=== PATIENT | male | born 1940 | race Caucasian/White ===

== ENCOUNTER → 2017-04-20 | Outpatient (CLI) | payer MEDICARE, OTHER ==
--- NOTE | 2017-04-20 12:27 | CT ---
EXAMINATION TYPE: CT angio neck DATE OF EXAM: 04/20/2017 HISTORY: Occlusion and stenosis of left carotid artery per order. Known peripheral vascular disease. History of carotid endarterectomy. COMPARISON: NONE CT DLP: 437 mGycm. Automated Exposure Control for Dose Reduction was Utilized. TECHNIQUE: CTA scan of the neck is performed without and with IV Contrast, patient injected with 80 ml mL of Visipaque 320, axial images are obtained, coronal and sagittal reformatted images are review ed. Three-D reconstructed images are created on an independent workstation and reviewed. FINDINGS: Carotid/Vascular Structures: There is normal three-vessel origin from aortic arch which does not show significant plaque. There is mild peripheral calcified plaque at origin of all 3 vessels. The right common carotid artery shows normal origin from the right brachiocephalic artery. There is no signific ant stenosis in visualized portion of subclavian arteries bilaterally. Right common carotid artery sh ows mild calcified plaque at its origin. Remainder shows no significant plaque or stenosis. There is no significant plaque or stenosis at right carotid bulb. There is patent right external carotid arter y without significant plaque or stenosis. There is some tortuous course to the proximal internal das tid artery with moderate calcified plaque supraclinoid segment. No significant stenosis is seen. Left common carotid artery shows mild plaque at its origin. There is no significant stenosis identifi ed. No significant plaque at left carotid bulb level is seen. There is more severe predominately mixed plaque in the proximal internal carotid artery just past car otid bulb with significant stenosis identified. Lumen is significantly narrowed but some patency is i dentified along the anterior aspect measuring roughly 1.7 mm on raw data image 115. Computer postproc essing shows is lumen diameter is narrowed to 1.3 mm and expands to 4.3 mm superior to this. Degree o f narrowing is thought 70% on computer processing. It even appears more prominent than this on review of the raw data images. Length of plaque or significant stenosis is roughly 1 to 2 cm. Remainder of left internal carotid artery shows mild calcified plaque supraclinoid segment without significant alex nosis. Left vertebral artery is dominant. Vertebral arteries are patent to basilar junction. Other: Cervical spine is straightened. There is mild multilevel spurring. IMPRESSION: There is hemodynamically significant stenosis in proximal internal carotid artery with ca lculated lumen diameter narrowing of 70% with suspected even greater than narrowing on gross visualiz ation.
== END | disposition home or self-care (01) ==
LOC: RADCTMAIN 09:52
PROVIDERS: ATTEND Surgery
DX: I65.22 Occlusion and stenosis of left carotid artery (principal)
CPT/HCPCS: 82565; 84520; 70498; 36415; Q9967

== ENCOUNTER → 2017-04-24 | Outpatient (CLI) | payer MEDICARE, OTHER ==
[2017-04-24 13:29] LABS: Basophils # (A) 0.1 k/uL (0-0.2); Basophils % (A) 1 %; Eosinophils # (A) 0.2 k/uL (0-0.7); Eosinophils % (A) 3 %; HCT 43.9 % (39.0-53.0); HGB 14.2 gm/dL (13.0-17.5); Lymphocytes # (A) 1.1 k/uL (1.0-4.8); Lymphocytes % (A) 18 %; MCH 29.2 pg (25.0-35.0); MCHC 32.3 g/dL (31.0-37.0); MCV 90.3 fL (80.0-100.0); Mean Platelet Volume 7.2; Monocytes # (A) 0.4 k/uL (0-1.0); Monocytes % (A) 7 %; Neutrophils # (A) 4.3 k/uL (1.3-7.7); Neutrophils % (A) 70 %; Platelet Count 203 k/uL (150-450); RBC 4.87 m/uL (4.30-5.90); RDW 13.8 % (11.5-15.5); WBC 6.1 k/uL (3.8-10.6)
[2017-04-24 13:34] LABS: Potassium 4.9 mmol/L (3.5-5.1)
[2017-04-24 13:39] LABS: INR 1.3 (<1.2); Partial Thromboplastin Time 30.4 sec (22.0-30.0)
[2017-04-24 13:42] LABS: Appearance,Urine Clear (Clear); Bilirubin,Urine Negative (Negative); Blood,Urine Negative (Negative); Color,Urine Light Yellow; Glucose,Urine (UA) 4+ (Negative); Ketones,Urine Negative (Negative); Leukocyte Esterase,Urine Negative (Negative); PH, Urine 5.5 (5.0-8.0); Protein,Urine Negative (Negative); Specific Gravity,Urine 1.007 (1.001-1.035); Urobilinogen,Urine <2.0 mg/dL (<2.0)
== END | disposition home or self-care (01) ==
LOC: LABPAT 12:37
PROVIDERS: ATTEND Surgery
DX: Z01.812 Encounter for preprocedural laboratory examination (principal); I65.22 Occlusion and stenosis of left carotid artery; Z51.81 Encounter for therapeutic drug level monitoring; Z79.01 Long term (current) use of anticoagulants
CPT/HCPCS: 36415; 80051; 81003; 82565; 84520; 85025; 85610; 85730

== ENCOUNTER 2017-05-01 05:37 | Inpatient (IN) | payer MEDICARE, OTHER ==
[2017-04-26 10:34] VITALS: BMI 36.1
[~2017-05-01 05:37] MED LIST: DEXAMETHASONE SOD PHOSPHATE 10 MG/ML 1 ML VIAL IV ONE; LACTATED RINGERS 1,000 ML IV SCH; MIDAZOLAM 2 MG/2 ML VIAL IV PRN; MORPHINE SULFATE 4 MG/ML SYRINGE IV PRN; NITROGLYCERIN-D5W PMX 50 MG in DEXTROSE/WATER 1 250ML.BAG IV SCH; ONDANSETRON 4 MG/2 ML VIAL IVP ONE; PHENYLEPHRINE 40 MG in SODIUM CHLORIDE 0.9% 250 ML IV SCH; SCOPOLAMINE 1.5MG/72HR PATCH TRANSDERM ONE; ceFAZolin IN SWFI 2 GM/20 ML SYRINGE IVP ONE
[2017-05-01] MEDS ORDERED: DEXTROSE 50%-WATER 50 ML SYRINGE IVP ONE ×2 (06:53→07:25)
[2017-05-01] MEDS ORDERED: LIDOCAINE 1% 20 ML VIAL (10MG/ML) FOR IV START INTRADERMA ONE (07:00)
[2017-05-01 07:03] LABS: Glucose,Whole Blood 62 mg/dL (75-99)
[2017-05-01] MEDS ORDERED: PROPOFOL 10 MG/ML 20 ML VIAL IV ONE (07:34)
[2017-05-01] MEDS ORDERED: MIDAZOLAM 2 MG/2 ML VIAL ONE (07:34)
[2017-05-01] MEDS ORDERED: SUCCINYLCHOLINE CHLORIDE VIAL 200 MG/10 ML VIAL IV ONE (07:34)
[2017-05-01] MEDS ORDERED: HEPARIN SODIUM,PORCINE 5,000 UNIT/ML 1 ML VIAL ONE (07:34)
[2017-05-01] MEDS ORDERED: fentaNYL (PF) 50 MCG/ML 2 ML AMP ONE (07:34)
[2017-05-01] MEDS ORDERED: NITROGLYCERIN-D5W PMX 50 MG in DEXTROSE/WATER 1 250ML.BAG IV SCH (07:45)
[2017-05-01] MEDS ORDERED: GELATIN SPONGE,ABSORB (LARGE) 1 EACH SPONGE TOPICAL ONE (08:14)
[2017-05-01] MEDS ORDERED: THROMBIN (BOVINE) 5,000 UNIT VIAL TOPICAL ONE (08:15)
[2017-05-01] MEDS ORDERED: ACETAMINOPHEN TAB 325 MG TAB PO PRN (10:10)
[2017-05-01] MEDS ORDERED: MAG HYDROX/AL HYDROX/SIMETH 30 ML CUP PO PRN (10:10)
[2017-05-01] MEDS ORDERED: BENZOCAINE/MENTHOL LOZENG 1 EACH LOZENGE MUCOUS MEM PRN (10:10)
[2017-05-01] MEDS ORDERED: TRIMETHOBENZAMIDE 100 MG/ML 2 ML VIAL IM PRN (10:10)
[2017-05-01] MEDS ORDERED: HYDROcodone/APAP 5-325MG 1 EACH TAB PO PRN (10:10)
[2017-05-01 10:38] LABS: Glucose,Whole Blood 87 mg/dL (75-99)
[2017-05-01] MEDS: LACTATED RINGERS 1,000 ML IV SCH (11:15)
[2017-05-01 11:19] LABS: Glucose,Whole Blood 85 mg/dL (75-99)
--- NOTE | 2017-05-01 11:44 | P.OP ---
Date of Procedure: 05/01/17 Preoperative Diagnosis: Left internal carotid artery stenosis greater than 80% Postoperative Diagnosis: Left internal carotid artery stenosis with dense calcified plaque. Procedure(s) Performed: Left carotid endarterectomy with patch angioplasty Implants: Bovine pericardial patch Anesthesia: SILVIA Surgeon: Darien Samuel Estimated Blood Loss (ml): 15 IV fluids (ml): 500 Urine output (ml): 300 Pathology: other (Carotid plaque) Condition: stable Disposition: ICU Indications for Procedure: Is a 76-year-old gentleman who presented to my office as a referral from Dr. Joseph for carotid disease. She underwent an ultrasound that demonstrated a 80- 99% stenosis of the left internal carotid artery. He is asymptomatic without any complaints of lateralizing symptoms such as weakness, vision changes or speech issues. He did undergo a CT angiogram of his neck which demonstrated dense plaque just distal to the bifurcation consistent with greater than 70% stenosis. He presents to the hospital today for carotid endarterectomy. Operative Findings: Dense calcified plaque just distal to the bifurcation. Description of Procedure: After written informed consent was obtained the patient all risks benefits, patient prescribed patient is brought to the operative suite and laid in a supine position. The area of the neck and chest were prepped and draped in usual sterile fashion after appropriate anesthetic was performed per the anesthesiologist. A timeout was performed in normal fashion antibiotics were administered prior to incision. An oblique incision was then created just anterior to the sternocleidomastoid muscle and dissection was carried down through the platysma musculature to the carotid sheath. The carotid sheath was incised and dissection to the carotid artery was performed. Of note the carotid artery was deep and posterior. Further dissection was then carried around the common carotid artery and controlled with a vessel loop. The internal and external carotid arteries were then dissected free in a circumferential manner and controlled with vessel loops. Air was dense calcified plaque noted just distal to the carotid bulb and bifurcation. Once control was obtained patient was administered 5000 units of heparin and followed with serial ACTs. Once heparin was allowed to circulate for approximately 3 minutes the common carotid, internal and external carotid arteries were clamped. An arteriotomy was then created with a 15 blade scalpel and extended with Lorenzo scissors to the internal carotid artery. Backbleeding was allowed to be visualized from the internal carotid artery which was brisk. Stump pressures were obtained demonstrating pressures of around 70 mmHg and therefore a shunt was not utilized. Endarterectomy was then performed with a [place] device both proximally and distally the carotid vessel to a good end points at the distal internal carotid artery. Plaque was then passed off for pathology. The area was then copiously irrigated all free debris was removed. Utilizing a 7-0 Prolene suture the endpoint was sutured and tacked down. A 6 x 1 cm bovine pericardial patch was then utilized for patch angioplasty. Patch angioplasty was then performed and all fashion with 6- 0 Prolene suture in a running fashion. Prior to last sutures being placed the common carotid artery was released to allow for a good flush. It was then reclamped. The internal carotid artery was then released revealing good backbleeding. Final sutures were then placed in angioplasty was concluded. The internal carotid artery was then reclamped with a DeBakey and the proximal control was released as well as the external carotid artery to allow for any debris to be flushed into the external system. All control was then released demonstrating good pulsatile blood flow throughout the patch and in the internal carotid artery. Utilizing Doppler good flow was heard in the internal carotid artery. The area was then copiously irrigated with antibiotic solution. Hemostasis was assured with Gelfoam and thrombin. Once hemostasis was assured a 10 SULEMA drain was placed in normal fashion. It was then sutured with nylon suture. The incision was then closed in a multilayer fashion with 3- 0 Vicryl for the platysma and 4-0 Vicryl for the skin. The skin was then cleansed and dressings were placed and patient tolerated procedure well. He was awoken in the operating room moving all extremities following commands and then was taken to the ICU for recovery.
--- NOTE | 2017-05-01 15:14 | P.CONS ---
History of Present Illness - Reason for Consult Consult date: 05/01/17 medical management - Chief Complaint post left carotid endarterectomy - History of Present Illness 76-year-old male with past medical history of hypertension and diabetes mellitus. Patient does not provide a thorough history and seems to be in the mindset that he is healthy overall. Patient reports that this is an elective procedure he is not sure at which point the doctors discovered that he has internal carotid stenosis by his doctors were surveilling that and he mentioned that at one day his doctor just told him that F[place] point where need surgery. Patient denies any associated symptoms. Currently he is postoperative day #0 tolerated procedure well denies any chest pain or trouble breathing denies any dizziness or lightheadedness he claims to feel great. Tolerated by mouth intake just some light liquids, has a Diaz catheter for urination and he mentioned that he has passed a bowel movement this morning. He denies any fevers or chills denies any leg pain. Upon further questioning of his past medical history he did mention that he has hypertension diabetes mellitus and chronic kidney disease and psoriasis. He is not aware of any history of atrial fibrillation. Review of Systems Constitutional: Patient denies fever, denies chills, denies night sweating, denies significant weight changes Eyes: Patient denies visual changes, denies eye pain ENT: Patient denies ear pain, denies rhinorrhea, denies sore throat Cardiovascular: Patient denies chest pain, denies exertional dyspnea, denies peripheral leg edema, denies orthopnea, denies paroxysmal nocturnal dyspnea Respiratory:Patient denies cough, denies wheezing, denies shortness of breath Gastrointestinal: Patient denies diarrhea, denies constipation, denies nausea , denies vomiting, denies abdominal pain Genitourinary: Patient denies dysuria, denies hematuria, denies changes in urinary habits, denies genital lesions Musculoskeletal: Patient denies muscle pain, denies joint pain Psychiatric: Patient denies changes in mood or memory, denies suicidal ideation, denies anxiety Endocrine: Patient denies heat intolerance, denies cold intolerance, denies excessive thirst, denies polyuria Neurological: Patient denies focal neurologic deficits, denies weakness, denies numbness, denies tingling Hem/Lymphatic: Patient denies bleeding tendency, denies bruising, denies swollen lymph glands Allergic/Immun: Patient denies recent allergic reactions Skin: Patient denies rashes, denies pruritis, denies ulcers Past Medical History Past Medical History: Diabetes Mellitus, Hypertension, Skin Disorder Additional Past Medical History / Comment(s): blockage left carotid artery, gout , psoriasis, CKD History of Any Multi-Drug Resistant Organisms: None Reported Additional Past Surgical History / Comment(s): rt carotid endarterectomy, philip cataracts, Past Anesthesia/Blood Transfusion Reactions: No Reported Reaction Past Psychological History: No Psychological Hx Reported Smoking Status: Never smoker Past Alcohol Use History: None Reported Past Drug Use History: None Reported - Past Family History Mother Family Medical History: No Reported History family Additional Family Medical History / Comment(s): denies any family history of heart disease, stroke, or cancer Medications and Allergies Home Medications Medication Instructions Recorded Confirmed Type Atorvastatin [Lipitor] 20 mg PO HS 04/26/17 05/01/17 History Bisoprolol Fumarate [Zebeta] 10 mg PO HS 04/26/17 05/01/17 History Furosemide [Lasix] 60 mg PO DAILY 04/26/17 05/01/17 History Gabapentin 600 mg PO BID 04/26/17 05/01/17 History Insuln Asp Prt/Insulin Aspart 35 unit SQ QAM 04/26/17 05/01/17 History [NovoLOG MIX 70-30 VIAL] Insuln Asp Prt/Insulin Aspart 45 unit SQ DAILY@1800 04/26/17 05/01/17 History [NovoLOG MIX 70-30 VIAL] Rivaroxaban [Xarelto] 20 mg PO DAILY 04/26/17 05/01/17 History Allergies Allergy/AdvReac Type Severity Reaction Status Date / Time No Known Allergies Allergy Verified 05/01/17 10:57 Physical Exam Vitals: Vital Signs Temp Pulse Pulse Pulse Resp BP BP 05/01/17 14:00 82 16 05/01/17 13:00 76 24 133/76 05/01/17 12:00 98.8 F 77 22 126/80 05/01/17 11:30 84 25 H 119/82 05/01/17 11:20 77 19 05/01/17 11:10 98.8 F 18 05/01/17 11:06 98.8 F 79 18 120/78 05/01/17 10:53 80 16 146/77 05/01/17 10:38 81 16 136/65 05/01/17 10:23 76 16 145/65 05/01/17 10:08 97.1 F L 92 16 122/52 05/01/17 07:10 97.9 F 78 18 176/77 BP Pulse Ox 05/01/17 14:00 94 L 05/01/17 13:00 95 05/01/17 12:00 94 L 05/01/17 11:30 94 L 05/01/17 11:20 94 L 05/01/17 11:10 120/78 98 05/01/17 11:06 95 05/01/17 10:53 140/70 05/01/17 10:38 144/75 97 05/01/17 10:23 146/82 96 05/01/17 10:08 120/50 91 L 05/01/17 07:10 157/80 99 Intake and Output 04/30/17 05/01/17 05/01/17 22:59 06:59 14:59 Intake Total 1010 Output Total 580 Balance 430 Intake: IV 1010 Lactated Ringers 1,000 ml 160 @ 80 mls/hr IV .[id number] [facility] Rx#:[id number] Output: Urine 530 Estimated Blood Loss 50 ABP, PAP, CO, CI - Last 8 Hours Arterial Blood Pressure 146/62 Arterial Blood Pressure 157/73 Constitutional: No acute distress, conversant, pleasant Eyes: Anicteric sclerae, moist conjunctiva, no lid-lag Pupils equal round reactive to light ENMT: NC/AT Oropharynx clear, no erythema, exudates Neck: Supple, FROM, no masses, or JVD No carotid bruits on the right side, left carotid arteries covered with surgical dressing. No thyromegaly SULEMA drain in place status post surgery Lungs: Clear to auscultation Clear to percussion Normal respiratory effort, no accessory muscle use Cardiovascular: Heart irregular in rate and rhythm, No murmurs, gallops, or rubs No peripheral edema Abdominal: Soft Nontender, no guarding, rebound or rigidity Abdomen moving with respiration Normoactive bowel sounds No hepatomegaly, No splenomegaly No palpable mass No abdominal wall hernia noted Diaz catheter in place yellow urine Skin: Normal temperature, tone, texture, turgor No induration No subcutaneous nodules Patient has scattered rashes and lesions over and around his umbilicus , right elbow, left knee from known psoriasis erythematous patches. No ulcers Extremities: No digital cyanosis No clubbing Pedal pulses intact and symmetrical Radial pulses intact and symmetrical No calf tenderness Psychiatric: Alert and oriented to person, place and time Appropriate affect fair judgment Neuro Muscles Strength 5/5 in all 4 extremities Sensation to light touch grossly present throughout Cranial nerves II-XII grossly intact No focal sensory deficits Lymphatics: no palpable cervical or supraclavicular , or inguinal lymph nodes Results Labs: Abnormal Lab Results - Last 24 Hours (Table) 05/01/17 Range/Units 06:38 POC Glucose (mg/dL) 62 L (75-99) mg/dL Assessment and Plan Assessment: 76-year-old male with history of diabetes mellitus, hypertension, CK D. Presented electively for left carotid endarterectomy, currently postoperative day 0 tolerated procedure well. Medicine was consulted for medical management. Patient is unable to provide a very thorough history he seems to have poor insight about the scope of's medical problems. Plan: #Left carotid stenosis status post left carotid endarterectomy postoperative day 0 Patient tolerated procedure well Management per primary surgical team Continue aspirin, statin #Diabetes mellitus Continue with home insulin dosing Add insulin sliding scale Check A1c #Hypertension Currently controlled bisoprolol #Atrial fibrillation chronic on anticoagulation, currently rate controlled Continue with xarelto #Chronic kidney disease It's unclear what says baseline creatinine is however his current creatinine is the lowest he ever had by reviewing his chart Avoid nephrotoxic medications Continue to monitor urine output and renal function #DVT prophylaxis patient on Heparin sc #Diet, diabetic as tolerated #Psoriasis Currently stable Discontinue heparin subcu in the morning when patient starts Xarelto Check morning labs Continue supportive care Close monitoring of blood sugars Surrogate decision-maker: Patient's Marlen CODE STATUS: Full code Discussed with: Patient, RN Thank you for allowing us to participate in the care of this patient. Do not hesitate to contact us with questions. Someone can be reached from the [facility] hospitalist group at all hours of the day at [phone].
[2017-05-01 17:15] LABS: Glucose,Whole Blood 115 mg/dL (75-99)
[2017-05-01] MEDS: INSULIN ASPART 100 UNIT/ML 1 ML 10 ML VIAL SQ SCH ×2 (17:24→20:48)
[2017-05-01] MEDS ORDERED: INSULN ASP PRT/INSULIN ASPART 100 UNIT/ML 10 ML VIAL SQ SCH (18:00)
[2017-05-01] MEDS: GABAPENTIN 300 MG CAP PO SCH (20:38)
[2017-05-01 20:44] LABS: Glucose,Whole Blood 216 mg/dL (75-99)
[2017-05-01] MEDS ORDERED: HEPARIN SODIUM,PORCINE 5,000 UNIT/ML 1 ML VIAL SQ SCH (21:00)
[2017-05-01] MEDS ORDERED: ATORVASTATIN 20 MG TAB PO SCH (21:00)
[2017-05-01] MEDS ORDERED: BISOPROLOL 5 MG TAB PO SCH (21:00)
[2017-05-02] MEDS: LACTATED RINGERS 1,000 ML IV SCH (03:02)
[2017-05-02 05:32] LABS: Basophils # (A) 0.1 k/uL (0-0.2); Basophils % (A) 1 %; Eosinophils # (A) 0.1 k/uL (0-0.7); Eosinophils % (A) 1 %; HCT 42.6 % (39.0-53.0); HGB 13.8 gm/dL (13.0-17.5); Lymphocytes # (A) 1.3 k/uL (1.0-4.8); Lymphocytes % (A) 13 %; MCH 28.6 pg (25.0-35.0); MCHC 32.4 g/dL (31.0-37.0); MCV 88.3 fL (80.0-100.0); Mean Platelet Volume 7.1; Monocytes # (A) 0.8 k/uL (0-1.0); Monocytes % (A) 8 %; Neutrophils # (A) 7.3 k/uL (1.3-7.7); Neutrophils % (A) 76 %; Platelet Count 219 k/uL (150-450); RBC 4.82 m/uL (4.30-5.90); WBC 9.7 k/uL (3.8-10.6)
[2017-05-02 05:51] LABS: Albumin 3.3 g/dL (3.5-5.0); Calcium 8.8 mg/dL (8.4-10.2); Potassium 4.8 mmol/L (3.5-5.1); Total Bilirubin 0.7 mg/dL (0.2-1.3); Total Protein 6.3 g/dL (6.3-8.2)
[2017-05-02] MEDS ORDERED: RIVAROXABAN 20 MG TAB PO SCH (07:30)
[2017-05-02 07:47] LABS: Glucose,Whole Blood 166 mg/dL (75-99)
[2017-05-02] MEDS: INSULIN ASPART 100 UNIT/ML 1 ML 10 ML VIAL SQ SCH ×2 (07:49→12:39)
[2017-05-02] MEDS: INSULN ASP PRT/INSULIN ASPART 100 UNIT/ML 10 ML VIAL SQ SCH ×2 (08:01→08:07)
[2017-05-02] MEDS: GABAPENTIN 300 MG CAP PO SCH (08:02)
[2017-05-02] MEDS ORDERED: ASPIRIN 81 MG PO SCH (09:00)
[2017-05-02] MEDS ORDERED: FUROSEMIDE 20 MG TAB PO SCH (09:00)
[2017-05-02 09:10] VITALS: TEMP 97.8
--- NOTE | 2017-05-02 10:13 | P.PN ---
Subjective Progress Note Date: 05/02/17 Principal diagnosis: Patient seen and examined in follow-up for diabetes mellitus, CK D, and medical management postoperatively Patient was seen and examined, sitting in chair very comfortable denies any pain , denies any chest pain or trouble breathing, doing well postoperatively, reported that he urinated and passed a bowel movement with no problems. Tolerating diet denies any nausea vomiting fevers or chills. He anticipates to go home today. Objective - Vital Signs Vital signs: Vital Signs Temp 97.8 F 05/02/17 08:00 Pulse 75 05/02/17 09:00 Resp 21 05/02/17 09:00 BP 151/62 05/02/17 09:00 Pulse Ox 93 L 05/02/17 09:00 Intake & Output 05/01/17 05/02/17 05/02/17 18:59 06:59 18:59 Intake Total 1650 1560 480 Output Total 1010 857 106 Balance 640 703 374 Weight 116 kg Intake: IV 1410 960 240 Lactated Ringers 1,000 ml 560 960 240 @ 80 mls/hr IV .[id number] [facility] Rx#:[id number] Oral 240 600 240 Output: Drainage 22 6 Left Neck 22 6 Urine 960 835 100 Estimated Blood Loss 50 Other: Voiding Method Indwelling Catheter Indwelling Catheter Indwelling Catheter # Bowel Movements 1 ABP, PAP, CO, CI - Last Documented Arterial Blood Pressure 123/73 - Exam Constitutional: vital signs stable, Not in acute distress, pleasant, conversant, dressing over the left side of the neck dry clean and intact, SULEMA drain in place minimal drainage Lungs: Clear to auscultation bilaterally, clear to percussion, normal respiratory effort no use of accessory muscles Cardiovascular: Regular rate and rhythm, no murmurs, no gallops, no rubs, no peripheral edema Gastrointestinal: Soft, no tenderness to palpation, bowel sounds positive Skin: Scattered patches of macular rash with scaling due to his history of psoriasis mainly over his left atkinson, left elbow. Extremities: No digital cyanosis or clubbing, peripheral pulses palpable and equal over bilateral radial arteries and dorsalis pedis artery, no calf muscle tenderness Psych: Alert, oriented to place, person and time, appropriate affect, intact judgment - Labs CBC & Chem 7: 05/02/17 05:20 05/02/17 05:20 Labs: Abnormal Lab Results - Last 24 Hours (Table) 05/01/17 05/01/17 05/02/17 Range/Units 17:13 20:40 05:20 BUN 29 H (9-20) mg/dL Creatinine 1.40 H (0.66-1.25) mg/dL Glucose 185 H (74-99) mg/dL POC Glucose (mg/dL) 115 H 216 H (75-99) mg/dL AST 15 L (17-59) U/L ALT 18 L (21-72) U/L Albumin 3.3 L (3.5-5.0) g/dL 05/02/17 Range/Units 07:45 BUN (9-20) mg/dL Creatinine (0.66-1.25) mg/dL Glucose (74-99) mg/dL POC Glucose (mg/dL) 166 H (75-99) mg/dL AST (17-59) U/L ALT (21-72) U/L Albumin (3.5-5.0) g/dL Assessment and Plan Assessment: 76-year-old male with history of diabetes mellitus, hypertension, CKD. Presented electively for left carotid endarterectomy, currently postoperative day 1 tolerated procedure well. Medicine was consulted for medical management. Patient is unable to provide a very thorough history he seems to have poor insight about the scope of his medical problems. Today he continues to be stable , administrative aide showing sinus rhythm. Possible discharge home today per primary surgical team Plan: #Left carotid stenosis status post left carotid endarterectomy postoperative day #1 Patient tolerated procedure well Management per primary surgical team Continue aspirin, statin #Diabetes mellitus Continue with home insulin dosing insulin sliding scale Check A1c overall blood sugar is well controlled #Hypertension Currently controlled bisoprolol #Paroxysmal Atrial fibrillation on anticoagulation Continue with xarelto currently in sinus rhythm #Chronic kidney disease It's unclear whathis baseline creatinine is however his current creatinine is the lowest he ever had by reviewing his chart, and continues to improve and trend down Avoid nephrotoxic medications Continue to monitor urine output and renal function #DVT prophylaxis, discontinue heparin sc, patient restarted his Xarelto #Diet, diabetic as tolerated #Psoriasis Currently stable continue to apply Eucerine patient does not recall the name of his regular creams # code status , full code Labs reviewed, Hgb stable post op, renal function improving (patient with CKD), very mild (not clinically significant at this point ) increase in transaminases patient stable from internal medicine stand point for discharge. Thank you for allowing us to participate in the care of this patient.
[2017-05-02 11:56] LABS: Glucose,Whole Blood 343 mg/dL (75-99)
[2017-05-02 14:01] VITALS: BP 150/65; PULSE 74; RESP 22
[2017-05-02 14:27] LABS: Hemoglobin A1C 10.9 % (4.0-6.0)
== END 2017-05-02 14:51 | disposition home or self-care (01) | DRG 39 ==
LOC: 2ORMAIN 05:37 → 6ICU 10:48
PROVIDERS: ADMIT Surgery; ATTEND Surgery
PROC: 03CL0ZZ Extirpation of Matter from Left Internal Carotid Artery, Open Approach (ICD-10-PCS; principal; 2017-05-01 07:30)
PROC: 03UL0JZ Supplement Left Internal Carotid Artery with Synthetic Substitute, Open Approach (ICD-10-PCS; principal; 2017-05-01 07:30)
DX: I65.22 Occlusion and stenosis of left carotid artery (principal); E11.22 Type 2 diabetes mellitus with diabetic chronic kidney disease; I48.0 Paroxysmal atrial fibrillation; I12.9 Hypertensive chronic kidney disease with stage 1 through stage 4 chronic kidney disease, or unspecified chronic kidney disease; N18.9 Chronic kidney disease, unspecified; I25.10 Atherosclerotic heart disease of native coronary artery without angina pectoris; E78.5 Hyperlipidemia, unspecified; I73.9 Peripheral vascular disease, unspecified; F17.200 Nicotine dependence, unspecified, uncomplicated; L40.9 Psoriasis, unspecified; Z79.899 Other long term (current) drug therapy; Z79.01 Long term (current) use of anticoagulants; Z82.49 Family history of ischemic heart disease and other diseases of the circulatory system; Z79.4 Long term (current) use of insulin; Z79.82 Long term (current) use of aspirin
CPT/HCPCS: 80053; 83036; 85025; 86850; 86900; 86901; 88304; 88305; 88311

== ENCOUNTER 2018-04-08 11:37 | Inpatient (IN) | payer MEDICARE, OTHER ==
[2018-04-08] MEDS ORDERED: IPRATROPIUM-ALBUTEROL 3 ML NEB INHALATION STA (11:45)
--- NOTE | 2018-04-08 11:49 | ED ---
General Adult HPI - General Stated complaint: DESTINEE Time Seen by Provider: 04/08/18 11:47 Source: RN notes reviewed - History of Present Illness Initial comments: This a 77-year-old male who presents emergency department from another hospital for difficulty breathing. Patient states she's been having difficulty breathing for a few weeks but over the last 3 days gotten significantly worse. Patient states she has history of diabetes nature fibrillation. Patient's d- dimer was elevated as was BNP. The Hospital transfer the patient because they don't have a thick capability of doing a VQ scan at their facility. Patient continues to be short of breath and he does have a temperature of 100.0 here. Patient states he has been coughing quite a bit as well. She denies any chest pain. Patient denies palpitations. Patient denies any swelling to the legs. Patient denies any calf tenderness. Patient denies abdominal pain patient denies nausea vomiting diarrhea. Patient denies headache patient denies numbness weakness. - Related Data Home Medications Medication Instructions Recorded Confirmed Atorvastatin [Lipitor] 20 mg PO HS 04/26/17 04/08/18 Furosemide [Lasix] 60 mg PO DAILY 04/26/17 04/08/18 Insuln Asp Prt/Insulin Aspart 35 unit SQ QAM 04/26/17 04/08/18 [NovoLOG MIX 70-30 VIAL] Insuln Asp Prt/Insulin Aspart 45 unit SQ DAILY@1800 04/26/17 04/08/18 [NovoLOG MIX 70-30 VIAL] Aspirin 81 mg PO DAILY 04/08/18 04/08/18 Gabapentin [Neurontin] 100 mg PO TID 04/08/18 04/08/18 Isosorbide Mononitrate ER [Imdur] 30 mg PO DAILY 04/08/18 04/08/18 amLODIPine [Norvasc] 10 mg PO DAILY 04/08/18 04/08/18 Allergies Allergy/AdvReac Type Severity Reaction Status Date / Time No Known Allergies Allergy Verified 04/08/18 11:52 Review of Systems ROS Statement: Those systems with pertinent positive or pertinent negative responses have been documented in the HPI. ROS Other: All systems not noted in ROS Statement are negative. Past Medical History Past Medical History: Diabetes Mellitus, Hypertension, Skin Disorder Additional Past Medical History / Comment(s): blockage left carotid artery, gout , psoriasis, CKD History of Any Multi-Drug Resistant Organisms: None Reported Additional Past Surgical History / Comment(s): rt carotid endarterectomy, philip cataracts, Past Anesthesia/Blood Transfusion Reactions: No Reported Reaction Past Psychological History: No Psychological Hx Reported Smoking Status: Never smoker Past Alcohol Use History: None Reported Past Drug Use History: None Reported - Past Family History Mother Family Medical History: No Reported History family Additional Family Medical History / Comment(s): denies any family history of heart disease, stroke, or cancer General Exam - General Exam Comments Initial Comments: GENERAL: Patient is well-developed and well-nourished. Patient is nontoxic and well- hydrated and is in mild distress. Patient's O2 sat on 4 L was 89% ENT: Neck is soft and supple. No significant lymphadenopathy is noted. Oropharynx is clear. Moist mucous membranes. Neck has full range of motion without eliciting any pain. EYES: The sclera were anicteric and conjunctiva were pink and moist. Extraocular movements were intact and pupils were equal round and reactive to light. Eyelids were unremarkable. PULMONARY: Patient is a very wheezing bilaterally CARDIOVASCULAR: There is a regular rate and rhythm without any murmurs gallops or rubs. ABDOMEN: Soft and nontender with normal bowel sounds. No palpable organomegaly was noted. There is no palpable pulsatile mass. SKIN: Skin is clear with no lesions or rashes and otherwise unremarkable. NEUROLOGIC: Patient is alert and oriented x3. Cranial nerves II through XII are grossly intact. Motor and sensory are also intact. Normal speech, volume and content. Symmetrical smile. MUSCULOSKELETAL: Normal extremities with adequate strength and full range of motion. LYMPHATICS: No significant lymphadenopathy is noted PSYCHIATRIC: Normal psychiatric evaluation. Course Vital Signs 04/08/18 04/08/18 04/08/18 11:40 11:50 11:52 Temperature 100 F H Pulse Rate 113 H 102 H Respiratory 24 27 H Rate Blood Pressure 114/76 O2 Sat by Pulse 97 Oximetry 04/08/18 12:00 Temperature Pulse Rate 104 H Respiratory Rate Blood Pressure O2 Sat by Pulse Oximetry Medical Decision Making - Lab Data Lab Results 04/08/18 Range/Units 13:50 Plasma Lactic Acid Hussein 3.4 H* (0.7-2.0) mmol/L Disposition Clinical Impression: Acute exacerbation of chronic obstructive airways disease, Bronchitis Disposition: ADMITTED IP TO THIS HOSP Referrals: Glenn Bolaños MD [Primary Care Provider] - 1-2 days Time of Disposition: 15:02
[2018-04-08] MEDS ORDERED: ACETAMINOPHEN TAB 500 MG TAB PO STA (11:55)
--- NOTE | 2018-04-08 13:21 | NM ---
EXAMINATION TYPE: NM pul vent and perfuse DATE OF EXAM: 04/08/2018 COMPARISON: Outside radiograph same day HISTORY: 77-year-old male elevated d-dimer, difficulty breathing, shortness of breath TECHNIQUE: Utilizing inhalation of 28 mCi Tc 99m DTPA aerosol and intravenous injection of 4.91 mCi of Tc 99m MAA, ventilation and perfusion images are acquired post injection in multiple projections. FINDINGS: There is clumping of inhaled radiotracer within the central airways. No mismatch perfusion defect is identified. IMPRESSION: Very low probability for pulmonary embolus. Clumping of inhaled radiotracer within the central airway s can be seen with COPD.
[2018-04-08] MEDS ORDERED: SODIUM CHLORIDE 0.9% 1,000 ML IV ONE (14:44)
[2018-04-08] MEDS ORDERED: AZITHROMYCIN 500 MG in SODIUM CHLORIDE 0.9% 250 ML IVPB STA (14:45)
[2018-04-08] MEDS: IPRATROPIUM-ALBUTEROL 3 ML NEB INHALATION PRN (15:37)
[2018-04-08] MEDS: methylPREDNISolone SOD SUCCI 125 MG/2 ML VIAL IV SCH (18:10)
[2018-04-08] MEDS ORDERED: SODIUM CHLORIDE 0.9% 500 ML 500 ML IV ONE (18:19)
[2018-04-08] MEDS ORDERED: ACETAMINOPHEN TAB 500 MG TAB PO PRN (18:34)
[2018-04-08] MEDS ORDERED: HYDROcodone/APAP 5-325MG 1 EACH TAB PO PRN (18:34)
[2018-04-08] MEDS ORDERED: TEMAZEPAM 15 MG CAP PO PRN (18:34)
[2018-04-08] MEDS: BUDESONIDE 1 MG/2 ML NEBU INHALATION SCH (20:41)
[2018-04-08] MEDS: IPRATROPIUM-ALBUTEROL 3 ML NEB INHALATION SCH (20:41)
[2018-04-08] MEDS: FORMOTEROL FUMARATE 20 MCG/2 ML NEBU INHALATION SCH (20:41)
[2018-04-08] MEDS ORDERED: ATORVASTATIN 20 MG TAB PO SCH (21:00)
[2018-04-08] MEDS: GABAPENTIN 100 MG CAP PO SCH (21:05)
[2018-04-08] MEDS: HEPARIN SODIUM,PORCINE 5,000 UNIT/ML 1 ML VIAL SQ SCH (21:05)
--- NOTE | 2018-04-08 22:18 | HP ---
HISTORY AND PHYSICAL CHIEF COMPLAINT: Shortness of breath. HISTORY OF PRESENT ILLNESS: This 77-year-old gentleman with a past medical history of multiple medical problems including history of diabetes, hypertension, history of history of chronic kidney disease, fever, being followed by Dr. Glenn Bolaños in the outpatient setting. Complaining of shortness of breath for several days. 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 The patient was transferred to [facility] from [facility] and patient admitted to the hospital for further evaluation and treatment. There is no history of fever, rigors or chills. No history of headache, loss of consciousness or seizures. The fluoroscopy V/Q scan which showed pulmonary embolism but V/Q scan showed low probability of pulmonary embolus and the patient admitted to the hospital for further evaluation and treatment. There is no history of fever, rigors or chills. No history of headache, loss of consciousness or seizures. PAST MEDICAL HISTORY: History of diabetes, hypertension, history of skin disorder, history of blockage of the right carotid artery. MEDICATIONS ARE: Home medications are: 1. Norvasc 10 mg p.o. daily. 2. Imdur 30 mg. 3. NovoLog mix 70/30 35 units subcu q.a.m. and 40 units subcu daily. 4. Neurontin 100 mg t.i.d. 5. Lasix 60 mg daily. 6. Lipitor 10 mg q.h.s. 7. Aspirin 81 mg daily. ALLERGIES: None. FAMILY HISTORY: No history of heart disease or strokes in the family. SOCIAL HISTORY: No history of smoking. No history of alcohol intake. REVIEW OF SYSTEMS: ENT: No diminished hearing or vision. CARDIOVASCULAR SYSTEM: No angina or palpitations. RESPIRATION: As mentioned earlier. GI: No nausea or vomiting. : No dysuria. NERVOUS SYSTEM: No numbness or weakness. ALLERGY/IMMUNOLOGY: As mentioned earlier. HEMATOLOGY/ONCOLOGY: No history of anemia. ENDOCRINE: No history of diabetes or hypothyroidism. CONSTITUTIONAL: As mentioned. Dermatology: Negative. Rheumatology: Negative. Psychiatry: As mentioned earlier. PHYSICAL EXAMINATION: Alert and oriented x2. Pulse is 129. Blood pressure 114/76, respiratory 24, temperature 100 degrees, pulse ox 97 percent on 10% non-rebreather. HEENT: Conjunctivae normal. NECK: No jugular venous distention. Cardiovascular systems: S1, S2 muffled. Respiration: Breath sounds diminished in the bases. Bilateral scattered rhonchi and crackles. Expiratory wheezing also present. ABDOMEN: Soft, obese, nontender. Legs: No edema. No swelling. NERVOUS SYSTEM: Higher functions as mentioned earlier. Moves all four extremities. Lymphatics: No lymph nodes palpable in the neck, axillae or groin. SKIN: No ulcer, rash or bleeding. JOINTS: No active deforming arthropathy. LABS: Plasma lactic acid 3.4. ASSESSMENT: 1. Chronic obstructive pulmonary disease exacerbation with acute ventricular bronchitis and acute hypoxic respiratory failure with acute purulent tracheobronchitis. No evidence of any pulmonary embolism. 2. Diabetes mellitus type 2. 3. Hypertension. 4. History of carotid artery blockages. 5. History of gastroesophageal reflux disease. 6. History of psoriasis. 7. Chronic kidney disease. 8. History of recurrent endarterectomy. RECOMMENDATIONS AND DISCUSSION: In this 71-year-old gentleman who presented with multiple medical issues, we will monitor the patient closely, continue the current medications, management and symptomatic treatment. Otherwise continue the bronchodilators, antibiotics. Also recommend DVT prophylaxis. Pulmonary consultation. Prognosis guarded because of multiple complex medical issues. Further recommendations to follow. MMODL / IJN: [id number] / NADINE
--- NOTE | 2018-04-08 23:25 | XR ---
EXAM: XR Chest, 1 View CLINICAL HISTORY: pneumonia TECHNIQUE: Frontal view of the chest. COMPARISON: No relevant prior studies available. FINDINGS: Lungs: Unremarkable. No consolidation. Pleural space: Unremarkable. No pneumothorax. Heart: Unremarkable. No cardiomegaly. Mediastinum: Unremarkable. Bones/joints: No acute osseous abnormality. IMPRESSION: No acute cardiopulmonary process.
[2018-04-09] MEDS: methylPREDNISolone SOD SUCCI 125 MG/2 ML VIAL IV SCH ×2 (00:32→06:54)
[2018-04-09 00:55] LABS: Basophils % (A) 1 %; Eosinophils % (A) 0 %; HCT 51.6 % (39.0-53.0); HGB 15.4 gm/dL (13.0-17.5); Hypochromasia Marked; Lymphocytes # (A) 0.3 k/uL (1.0-4.8); Lymphocytes % (A) 6 %; MCH 29.9 pg (25.0-35.0); MCHC 29.9 g/dL (31.0-37.0); MCV 100.1 fL (80.0-100.0); Mean Platelet Volume 7.9; Monocytes # (A) 0.1 k/uL (0-1.0); Monocytes % (A) 2 %; Neutrophils # (A) 4.2 k/uL (1.3-7.7); Neutrophils % (A) 91 %; Platelet Count 158 k/uL (150-450); RBC 5.16 m/uL (4.30-5.90); RDW 13.8 % (11.5-15.5); WBC 4.6 k/uL (3.8-10.6)
[2018-04-09 01:05] LABS: Glucose,Whole Blood 536 mg/dL (75-99)
[2018-04-09 01:25] LABS: Albumin 3.6 g/dL (3.5-5.0); Calcium 7.4 mg/dL (8.4-10.2); Magnesium 1.9 mg/dL (1.6-2.3); Total Bilirubin 0.7 mg/dL (0.2-1.3); Total Protein 6.8 g/dL (6.3-8.2)
[2018-04-09 01:34] LABS: Potassium 5.4 mmol/L (3.5-5.1)
[2018-04-09] MEDS ORDERED: INSULIN ASPART (NovoLOG) 100 UNIT/ML VIAL SQ SCH (02:00)
[2018-04-09] MEDS: IPRATROPIUM-ALBUTEROL 3 ML NEB INHALATION PRN (03:00)
[2018-04-09 04:01] LABS: Glucose,Whole Blood 525 mg/dL (75-99)
[2018-04-09 04:57] LABS: Basophils % (A) 0 %; Eosinophils # (A) 0.1 k/uL (0-0.7); Eosinophils % (A) 1 %; HCT 47.8 % (39.0-53.0); HGB 14.6 gm/dL (13.0-17.5); Hypochromasia Marked; Lymphocytes # (A) 0.5 k/uL (1.0-4.8); Lymphocytes % (A) 10 %; MCH 29.8 pg (25.0-35.0); MCHC 30.6 g/dL (31.0-37.0); MCV 97.5 fL (80.0-100.0); Mean Platelet Volume 7.3; Monocytes # (A) 0.2 k/uL (0-1.0); Monocytes % (A) 3 %; Neutrophils # (A) 4.5 k/uL (1.3-7.7); Neutrophils % (A) 86 %; Platelet Count 170 k/uL (150-450); RBC 4.91 m/uL (4.30-5.90); RDW 13.8 % (11.5-15.5); WBC 5.3 k/uL (3.8-10.6)
[2018-04-09 05:14] LABS: Calcium 7.2 mg/dL (8.4-10.2); Potassium 4.8 mmol/L (3.5-5.1)
[2018-04-09] MEDS ORDERED: INSULIN REGULAR BOLUS (FROM DRIP BAG) IV PRN (05:31)
[2018-04-09] MEDS ORDERED: INSULIN REGULAR 100 UNIT in SODIUM CHLORIDE 0.9% 100 ML IV SCH (05:45)
[2018-04-09 05:46] LABS: Magnesium 1.9 mg/dL (1.6-2.3); Phosphorus 5.8 mg/dL (2.5-4.5)
[2018-04-09 06:05] LABS: Appearance,Urine Cloudy (Clear); Bacteria,Urine Occasional /hpf; Bilirubin,Urine Negative (Negative); Blood,Urine Moderate (Negative); Color,Urine Yellow; Glucose,Urine (UA) 4+ (Negative); Hyaline Casts,Urine 20 /lpf (0-2); Ketones,Urine 1+ (Negative); Leukocyte Esterase,Urine Negative (Negative); Mucus,Urine Rare /hpf; Nitrite,Urine Negative (Negative); Protein,Urine 1+ (Negative); Specific Gravity,Urine 1.012 (1.001-1.035); Squamous Epithelial Cell,Urine 2 /hpf (0-4); Urobilinogen,Urine <2.0 mg/dL (<2.0); WBC,Urine <1 /hpf (0-5)
[2018-04-09 06:49] LABS: Glucose,Whole Blood 413 mg/dL (75-99)
[2018-04-09 07:34] LABS: Glucose,Whole Blood 452 mg/dL (75-99)
[2018-04-09] MEDS: BUDESONIDE 1 MG/2 ML NEBU INHALATION SCH (08:26)
[2018-04-09] MEDS: FORMOTEROL FUMARATE 20 MCG/2 ML NEBU INHALATION SCH (08:26)
[2018-04-09] MEDS: IPRATROPIUM-ALBUTEROL 3 ML NEB INHALATION SCH (08:26)
[2018-04-09 08:29] LABS: Glucose,Whole Blood 268 mg/dL (75-99)
[2018-04-09] MEDS: HEPARIN SODIUM,PORCINE 5,000 UNIT/ML 1 ML VIAL SQ SCH (08:45)
[2018-04-09] MEDS: GABAPENTIN 100 MG CAP PO SCH ×3 (08:47→23:54)
[2018-04-09] MEDS: PANTOPRAZOLE 40 MG TABLET PO SCH (08:47)
[2018-04-09] MEDS: amLODIPine 10 MG TAB PO SCH (08:48)
[2018-04-09] MEDS: FUROSEMIDE 20 MG TAB PO SCH (08:49)
[2018-04-09] MEDS ORDERED: INSULN ASP PRT/INSULIN ASPART 100 UNIT/ML 10 ML VIAL SQ SCH ×2 (09:00→18:00)
[2018-04-09] MEDS ORDERED: ISOSORBIDE MONONITRATE ER 30 MG TAB.ER.24H PO SCH (09:00)
[2018-04-09] MEDS ORDERED: AZITHROMYCIN 500 MG TAB PO SCH (09:00)
[2018-04-09] MEDS ORDERED: ASPIRIN 81 MG PO SCH (09:00)
[2018-04-09 09:38] LABS: Glucose,Whole Blood 179 mg/dL (75-99)
[2018-04-09] MEDS ORDERED: DILTIAZEM 125 MG in SODIUM CHLORIDE 0.9% 100 ML IV SCH (09:45)
[2018-04-09 10:15] LABS: Glucose,Whole Blood 149 mg/dL (75-99)
[2018-04-09 10:25] VITALS: BMI 38.7
[2018-04-09] MEDS: FLECAINIDE 50 MG TAB PO SCH ×2 (10:54→23:56)
[2018-04-09] MEDS: METOPROLOL TARTRATE 25 MG TAB PO SCH ×2 (10:55→23:54)
[2018-04-09] MEDS: APIXABAN 5 MG TAB PO SCH ×2 (10:55→23:54)
--- NOTE | 2018-04-09 11:06 | CONS ---
CONSULTATION CONSULTATION FOR ICU MANAGEMENT: This is a 77-year-old male who presented to the emergency department from [facility]. He apparently came in with difficulty in breathing. The patient apparently had been having difficulty breathing for a few weeks prior to his visit to the outside hospital. Over the last 3 days though, the breathing got much more severe. The patient apparently does have a history of diabetes mellitus, hypertension, chronic kidney disease, and atrial fibrillation. The patient's D-dimer was elevated as was his N terminal proBNP. The patient apparently was thought to have a possible pulmonary embolism and a V/Q scan was apparently ordered. The V/Q scan is low probability. The patient also had an elevated temperature. He has been coughing quite a bit. No chest pain. There is no palpitations. No swelling in his legs. He had no calf tenderness or thigh tenderness. There was no recent long trips. No trauma to the lower extremities. He denied any abdominal pain. He also denied nausea, vomiting, and diarrhea. Anyway, the patient was seen in the emergency room and held there for quite some time and he was eventually admitted here to the ICU for further evaluation. I attempted to talk to one of the doctors or the nurse practitioner for the hospital group, but they apparently were unwilling to call me back and I had the charge nurse in the ICU go down to the emergency room to evaluate the patient. Anyway, the patient is currently now in the ICU. The patient is getting O2 at 6 L by nasal cannula. The IV saline at 100 mL an hour to be turned down to 50 mL an hour. The patient is on an insulin drip for hyperglycemia at 11 units/hour. As I mentioned, a V/Q scan was low probability. The patient has been having atrial fibrillation and flutter and Cardiology was consulted. He is a lifelong nonsmoker. HOME MEDICATIONS: Include Lipitor, Lasix, insulin, aspirin, Neurontin, Imdur and amlodipine. ALLERGIES: Denied. MEDICAL HISTORY: Includes diabetes mellitus, hypertension, psoriasis, chronic kidney disease, atrial fibrillation, left carotid artery obstruction, gout, previous right carotid endarterectomy and bilateral cataracts. He has also had bilateral cataract surgery. SOCIAL HISTORY: Significantly, he is a lifelong nonsmoker. Denies any alcohol or illicit drug use. FAMILY HISTORY: Essentially negative according to the patient. OCCUPATIONAL HISTORY: Noncontributory. REVIEW OF SYSTEMS: CONSTITUTIONAL: Weakness. NEUROLOGIC: Negative. HEENT: Negative. CARDIOVASCULAR: Palpitations and rapid heartbeat. No chest pain. PULMONARY: Shortness of breath, improved. GI: Negative. : Negative. RHEUMATOLOGIC: Negative. IMMUNOLOGIC: Negative. ENDOCRINOLOGIC: Negative. DERMATOLOGIC: Negative. Current vital signs are reviewed. His temperature is currently normal. His heart rate about 125-135 beats per minute. Respiratory rate is about 18, blood pressure is 133/71 with mean 91 and saturations are mid 90s on 6 L nasal cannula. He is able to talk in full sentences. Appears to be mildly dyspneic. No use of accessory muscles. No audible wheezing. HEENT examination is grossly unremarkable. Mucous membranes are moist. Nasal O2 noted. Neck is supple. Full range of motion. No adenopathy or thyromegaly. Neck veins are flat. Cardiovascular examination reveals irregular heartbeat. Heart rate about 125 beats per minute. S1, S2 normal. No distinct murmur noted. Heart sounds are distant. Lungs reveal mostly clear breath sounds. No wheezes or rhonchi. No crackles. Breath sounds are equal. Abdomen is soft but obese. Bowel sounds are heard. Extremities are intact. No cyanosis, clubbing, or significant edema. Skin reveals evidence of psoriasis. It is noted on his left leg, right forearm, and other places. Neurologic examination is brief but nonfocal. LABS: Reviewed. White count 5.3, hemoglobin 14.6, hematocrit 47.8, platelet count 170,000. Sodium 132, potassium 4.8, chloride 96, CO2 is 18, anion gap is 18, previous anion gap was 22, BUN and creatinine were 50 and 2.94. His glucose is 585, but it has come down. Lactic acid is down to 4.9 from 6.4, calcium 7.4 down to 7.2, phosphorus 5.8, magnesium 1.9. Urine shows occasional bacteria, LE and nitrate were both negative. There was less than 1 WBC. Acetone was negative. His lung scan was low probability. Chest x-ray is essentially normal. ASSESSMENT: 1. Shortness of breath, likely secondary to atrial fibrillation/flutter with increased with the atrial fibrillation/flutter with a rapid ventricular response. 2. No evidence of pulmonary embolism on V/Q scan. 3. History of uncontrolled diabetes mellitus without diabetic ketoacidosis. 4. Chronic kidney disease. 5. History of hyperlipidemia. 6. History of hypertension. 7. Obesity. 8. History of psoriasis. 9. History of bilateral carotid disease with previous right carotid endarterectomy. 10.Bilateral cataracts. 11.History of gout. PLAN: Cardiology is consulted. The patient is IVs turned down from 100 to 50 mL an hour. I believe his shortness of breath, likely related to underlying atrial fibrillation/flutter with rapid ventricular response. No evidence of pulmonary embolism. Likely no evidence of intrinsic pulmonary disease. He is a lifelong nonsmoker. His medications will be reviewed. Problem list reviewed. Allergies reviewed. Prognosis is guarded. Additional recommendations and suggestions are forthcoming. MMODL / IJN: [id number] /
[2018-04-09 11:23] LABS: Glucose,Whole Blood 129 mg/dL (75-99)
--- NOTE | 2018-04-09 11:51 | ECHOF ---
Referral Reason:new afib MEASUREMENTS -------- HEIGHT: 170.2 cm WEIGHT: 112.0 kg BP: 133/71 RVIDd: 2.8 cm (< 3.3) IVSd: 1.2 cm (0.6 - 1.1) LVIDd: 4.9 cm (3.9 - 5.3) LVPWd: 1.2 cm (0.6 - 1.1) IVSs: 1.7 cm LVIDs: 3.8 cm LVPWs: 1.7 cm LA Diam: 3.2 cm (2.7 - 3.8) Ao Diam: 3.4 cm (2.0 - 3.7) AV Cusp: 1.1 cm (1.5 - 2.6) MV E Chuck: 0.84 m/s MV DecT: 333 ms MV A Chuck: 0.92 m/s MV E/A Ratio: 0.91 RAP: 15.00 mmHg RVSP: 23.66 mmHg FINDINGS -------- Resting tachycardia (HR>100bpm). This was a technically difficult study with suboptimal views. The left ventricular size is normal. There is mild concentric left ventricular hypertrophy. Overa ll left ventricular systolic function is normal with, an EF between 60 - 65 %. The right ventricle is normal in size and function. The left atrial size is normal. The right atrium was not well visualized. 3 ml of Lumason was utilized for enhancement of images. The aortic valve is trileaflet and appears structurally normal. There is mild aortic valve sclerosi s. There is no evidence of aortic regurgitation. There is no evidence of aortic stenosis. The mitral valve leaflets are mildly thickened. There is trace to mild mitral regurgitation. Trace tricuspid regurgitation present. Right ventricular systolic pressure is normal at < 35 mmHg. There is no evidence of pulmonary hypertension. The pulmonic valve was not well visualized. The aortic root size is normal. The inferior vena cava is dilated with poor inspiratory collapse which is consistent with estimated r ight atrial pressure of 20 mmHg. There is a small, generalized pericardial effusion present. CONCLUSIONS -------- 1. Resting tachycardia (HR>100bpm). 2. This was a technically difficult study with suboptimal views. 3. The left ventricular size is normal. 4. There is mild concentric left ventricular hypertrophy. 5. Overall left ventricular systolic function is normal with, an EF between 60 - 65 %. 6. The left atrial size is normal. 7. The right atrium was not well visualized. 8. 3 ml of Lumason was utilized for enhancement of images. 9. The aortic valve is trileaflet and appears structurally normal. 10. There is mild aortic valve sclerosis. 11. The mitral valve leaflets are mildly thickened. 12. There is trace to mild mitral regurgitation. 13. Trace tricuspid regurgitation present. 14. Right ventricular systolic pressure is normal at < 35 mmHg. 15. There is no evidence of pulmonary hypertension. 16. The pulmonic valve was not well visualized. 17. The aortic root size is normal. 18. The inferior vena cava is dilated with poor inspiratory collapse which is consistent with estimat ed right atrial pressure of 20 mmHg. 19. There is a small, generalized pericardial effusion present. MANAGER SOUND: Fabiano Godoy RDCS
--- NOTE | 2018-04-09 12:13 | CONS ---
CONSULTATION Mr. Ha is a 77-year-old gentleman who is seen for cardiac evaluation. Patient's medical records reviewed. This patient was transferred from [facility] because of acute shortness of breath and further evaluation to rule out any pulmonary embolism. This patient has multiple medical problems in the past, diabetes, hypertension, history of chronic kidney disease, and peripheral vascular disease. The patient was admitted there with symptoms of increasing shortness of breath and patient has been treated for acute exacerbation of COPD. V/Q scan was performed, which does not show any evidence of pulmonary embolism. This patient has a history of peripheral arterial disease, history of left carotid endarterectomy and blockage in the right carotid artery. Patient is not having any symptoms of chest discomfort suggestive of angina. There is no prior history of myocardial infarction. We were requested to see this patient because of the atrial flutter. PAST MEDICAL HISTORY: Past medical history includes history of diabetes, hypertension, history of left carotid endarterectomy. HOME MEDICATIONS: Patient's home medications include Norvasc, Imdur, insulin, Neurontin, Lasix, Lipitor, and aspirin. REVIEW OF THE SYSTEMS: Review of the systems is otherwise unremarkable. PHYSICAL EXAMINATION: Physical examination at present reveals a 77-year-old gentleman who had initial temperature of a 100 degree on admission, blood pressure now is 114/76 mmHg, heart rate was 130. Head/ENT examination was negative. Neck was supple. There was no increase in jugular venous pressure. Both the carotid pulses are felt. There is no bruit. Chest is symmetrical. HEART: The PMI is not felt. First and second heart sounds are heard. Lungs reveal bilateral scattered rhonchi. Abdomen is soft. EXTREMITIES: There is no evidence of any significant leg edema. Peripheral pulsations are not felt. Initial EKG done this morning shows evidence of atrial flutter. Patient just converted to the normal sinus rhythm. Echocardiogram was performed, which revealed normal left ventricular systolic function. Chest x-ray does not show any definite evidence of pneumonia. Electrolytes are normal. Patient's creatinine is 2.9. Blood sugars are elevated. The patient had significantly elevated lactic acid, but no other signs of infections are noted. FINAL IMPRESSION: 1. This patient is admitted with acute exacerbation of chronic obstructive pulmonary disease. 2. The patient appears to have paroxysmal atrial flutter on and off. 3. History of chronic obstructive pulmonary disease. 4. History of diabetes, hypertension, peripheral vascular disease. RECOMMENDATIONS: At present, patient is in normal sinus rhythm. We will start the patient on Lopressor 25 mg b.i.d. and flecainide 50 mg b.i.d. to avoid recurrent episodes of atrial flutter. Increase the Lipitor to 40 mg daily. Because of the patient's multiple risk factors, we will start the patient on Eliquis 5 mg b.i.d. and discontinue the aspirin and subcu heparin. MMODL / IJN: [id number] /
[2018-04-09 12:20] LABS: Glucose,Whole Blood 125 mg/dL (75-99)
[2018-04-09] MEDS: SODIUM CHLORIDE 0.9% 1,000 ML IV SCH (12:33)
[2018-04-09 13:16] LABS: Glucose,Whole Blood 179 mg/dL (75-99)
--- NOTE | 2018-04-09 13:24 | CDI ---
Documentation Clarification Form Date: 04/09/2018 1:07:41 PM From: Danay Parada CCS, CCDS Admit Date: 04/08/2018 3:04:00 PM Patient Name: Hector Ha Visit Number: [id number] Discharge Date: ATTENTION: The Clinical Documentation Specialists (CDI) and [facility] Coding Staff appreciate your assistance in clarifying documentation. Please respond to the clarification below the line at the bottom and electronically sign. The CDI & [facility] Coding staff will review the response and follow-up if needed. Please note: Queries are made part of the Legal Health Record. If you have any questions, please contact the author of this message via ITS. Dr. Danyel Zamarripa: Per the Cardiology consult: "The patient appears to have paroxysmal atrial flutter on and off." Per the Pulmonary consult: "Shortness of breath, likely secondary to atrial fibrillation/flutter with increased with the atrial fibrillation/flutter with a rapid ventricular response." History/Risk Factors: Atrial fibrillation (per pulmonary consult), Hypertension with CKD, PVD, COPD, Hyperlipidemia, Obesity,non smoker, previous left carotid endarterectomy. Clinical Indicators: Presented with SOB from other facility, transferred for VQ scan: low probability for PE. 04/09 Initial EKG: evidence of atrial flutter. Treatment: Albuterol INH, IV Rocephin, IV fl bolus x, IV Azithromycin, IV Solumedrol, NRB. In your professional opinion, can you please clarify the type of Atrial Fibrillation and the type of Atrial Flutter, if known? Atrial Fibrillation: Atrial Flutter: Chronic/Permanent * Typical Paroxysmal * Atypical Persistent * Type I Other, please specify * Type II Unable to determine * Other, please specify: * Unable to determine (Last Revision: May 2017) MTDD
[2018-04-09 13:40] LABS: Hemoglobin A1C 8.9 % (4.0-6.0)
[2018-04-09] MEDS ORDERED: INSULN ASP PRT/INSULIN ASPART 100 UNIT/ML 10 ML VIAL SQ ONE ×2 (14:15→17:32)
[2018-04-09 14:29] LABS: Glucose,Whole Blood 228 mg/dL (75-99)
[2018-04-09] MEDS: IOPAMIDOL-300 CONTRAST 30 ML VIAL (ORAL USE) PO PRN ×2 (14:56→16:03)
[2018-04-09 15:30] LABS: Glucose,Whole Blood 170 mg/dL (75-99)
[2018-04-09 17:28] LABS: Glucose,Whole Blood 91 mg/dL (75-99)
[2018-04-09] MEDS: TOBRAMYCIN 0.3% OPHTH DROPS 5 ML BTL BOTH EYES SCH (17:43)
[2018-04-09] MEDS: INSULIN ASPART (NovoLOG) 100 UNIT/ML VIAL SQ SCH ×2 (17:44→21:00)
[2018-04-09] MEDS: INSULN ASP PRT/INSULIN ASPART 100 UNIT/ML 10 ML VIAL SQ SCH (17:44)
--- NOTE | 2018-04-09 18:09 | PN ---
PROGRESS NOTE DATE OF SERVICE: 04/09/2018 This 77-year-old gentleman who was admitted with COPD, acute exacerbation, with acute bronchitis, also had acute hypoxic respiratory failure. The patient also complains of abdominal pain at this time. The patient also had elevated lactic acid indicative of sepsis. The patient was started on broad-spectrum IV antibiotics. Ejection fraction was found to be 60% to 65%. The cultures are negative so far. The patient is monitored in the ICU at this time. Past medical history reviewed. REVIEW OF SYSTEMS: CARDIOVASCULAR SYSTEM: As mentioned earlier. RESPIRATORY SYSTEM: As mentioned earlier. GI: No nausea, vomiting. : No dysuria or retention. NERVOUS SYSTEM: No numbness, weakness. Please note that the blood sugar is elevated. Plasma lactic acid is also elevated. Troponin 0.406. The patient had atrial fibrillation, but a V/Q scan was done which showed very low probability of PE. CURRENT MEDICATIONS: Reviewed. They include: 1. Tylenol 500 mg q.6 p.r.n. 2. [place] 5 mg q.6 p.r.n. 3. Xanax 0.25 t.i.d. 4. Norvasc 10 mg daily. 5. Eliquis 5 mg b.i.d. 6. Lipitor 40 mg at bedtime. 7. Lotrimin. 8. Tambocor 50 mg b.i.d. 9. Lasix 60 mg daily. 10.Neurontin 100 mg t.i.d. 11.Novolin Mix 70/30, 45 units and 35 units. 12.Lopressor 25 mg. 13.Protonix. 14.Restoril. 15.Tobrex. PHYSICAL EXAMINATION: Patient is alert, oriented x3. Pulse is 92, blood pressure 105/58, respiration 34, temperature normal, pulse ox 94% on room air. HEENT: Conjunctivae normal. NECK: No jugular venous distention. CARDIOVASCULAR: S1, S2 muffled. RESPIRATORY SYSTEM: Breath sounds diminished at the bases. Bilateral scattered rhonchi and crackles. Expiratory wheezing also present. ABDOMEN: Soft, obese. Mild diffuse tenderness. LEGS: No edema. No swelling. NERVOUS SYSTEM: No focal deficit. LABS: WBC 5.3, hemoglobin 14.6, sodium 132, potassium 4.8, creatinine 2.94. Plasma lactic acid 4.9. Glucose 585. ASSESSMENT: 1. Possible chronic obstructive pulmonary disease, acute exacerbation, with acute purulent tracheobronchitis with acute hypoxic respiratory failure. No evidence of pulmonary embolism. 2. Atrial fibrillation with fast ventricular rate. 3. Diabetes mellitus, type 2. 4. Acute on chronic kidney disease. 5. Chronic kidney disease, stage III, baseline. 6. Hypertension. 7. History of carotid artery blockage. 8. History of gastroesophageal reflux disease. 9. History of psoriasis. 10.Chronic kidney disease, stage III. 11.Diabetes mellitus, type 2, uncontrolled. 12.Elevated plasma lactic acid. 13.Hypocalcemia. 14.Hyponatremia. 15.Hyperkalemia, present on admission. RECOMMENDATIONS AND DISCUSSION: In this 77-year-old gentleman who presented with multiple complex medical issues, we will monitor the patient closely, continue the current management, continue symptomatic treatment. Otherwise, will obtain x-ray of abdomen. Continue the rest of the medications. Continue the bronchodilators. Closely follow with Cardiology. Further recommendations to follow. MMAWILDAL / SAHRAN: [id number] /
[2018-04-09 21:01] LABS: Glucose,Whole Blood 85 mg/dL (75-99)
[2018-04-09] MEDS ORDERED: HALOPERIDOL LACTATE 5 MG/ML 1 ML VIAL IM PRN (22:15)
[2018-04-09] MEDS ORDERED: IPRATROPIUM-ALBUTEROL 3 ML NEB INHALATION STA (22:16)
[2018-04-09 22:34] LABS: ABG Base Excess -4.4 mmol/L; ABG HCO3 22 mmol/L (21-25); ABG Oxygen Saturation 96.5 % (94-97); ABG PCO2 44 mmHg (35-45); ABG PH 7.31 (7.35-7.45); ABG PO2 89 mmHg (83-108); ABG TCO2 23 mmol/L (19-24)
--- NOTE | 2018-04-09 22:37 | CT ---
EXAMINATION TYPE: CT ChestAbdPelvis without IV con, with Oral con DATE OF EXAM: 04/09/2018 COMPARISON: None HISTORY: Left side abdominal pain, pneumonia CT DLP: 1299.8 mGycm. Automated Exposure Control for Dose Reduction was Utilized. TECHNIQUE: Department protocol. FINDINGS: LUNGS: The lungs are grossly clear, there is no concerning parenchymal mass or nodule identified. T here is no pleural effusion or pneumothorax seen. The tracheobronchial tree is patent. MEDIASTINUM: No cardiomegaly or pericardial effusion. However, left coronary calcifications are noted and aortic valve plane calcifications also seen. No mediastinal or hilar adenopathy. OTHER: No additional significant abnormality is seen. LIVER/GB: No significant abnormality is appreciated. PANCREAS: No significant abnormality is seen. SPLEEN: No significant abnormality is seen. ADRENALS: No significant abnormality is seen. KIDNEYS AND URETERS AND BLADDER: No focal renal findings or acute process or hydroureter. Diaz rosa ter is in place. Approximately 4 mL nondependent gas is seen within the urinary bladder, presumably r elated to the Diaz catheter instrumentation. BOWEL: There is no bowel obstruction. Bowel gas pattern is normal. The oral contrast opacifies the st omach, duodenum, jejunum, and ileum. GENITAL ORGANS: No gross abnormality seen. LYMPH NODES: No greater than 1cm abdominal or pelvic lymph nodes are appreciated. OSSEOUS STRUCTURES: No significant abnormality is seen. ANTERIOR ABDOMINAL WALL: Intact. IMPRESSION: 1) No acute osseous fracture, abnormal fluid collection, or evidence of solid organ injury in the th orax, abdomen, or pelvis. 2) Coronary calcifications.
[2018-04-09 22:58] LABS: Partial Thromboplastin Time 25.7 sec (22.0-30.0); Prothrombin Time 10.5 sec (9.0-12.0)
[2018-04-09 23:01] LABS: Basophils % (A) 0 %; Eosinophils # (A) 0.1 k/uL (0-0.7); Eosinophils % (A) 1 %; HCT 44.4 % (39.0-53.0); HGB 14.4 gm/dL (13.0-17.5); Lymphocytes # (A) 0.7 k/uL (1.0-4.8); Lymphocytes % (A) 5 %; MCH 29.9 pg (25.0-35.0); MCHC 32.4 g/dL (31.0-37.0); Mean Platelet Volume 6.8; Monocytes # (A) 0.7 k/uL (0-1.0); Monocytes % (A) 4 %; Neutrophils # (A) 14.1 k/uL (1.3-7.7); Neutrophils % (A) 90 %; Platelet Count 183 k/uL (150-450); RBC 4.81 m/uL (4.30-5.90); RDW 13.9 % (11.5-15.5); WBC 15.8 k/uL (3.8-10.6)
[2018-04-09 23:02] LABS: MCV 92.3 fL (80.0-100.0)
[2018-04-09 23:17] LABS: Creatine Kinase MB 15.9 ng/mL (0.0-2.4)
[2018-04-09] MEDS: CLOTRIMAZOLE 1% CREAM 15 GM TUBE TOPICAL SCH (23:17)
[2018-04-09 23:22] LABS: Albumin 3.7 g/dL (3.5-5.0); Calcium 7.4 mg/dL (8.4-10.2); Magnesium 2.1 mg/dL (1.6-2.3); Phosphorus 5.1 mg/dL (2.5-4.5); Potassium 4.4 mmol/L (3.5-5.1); Total Bilirubin 0.6 mg/dL (0.2-1.3); Total Protein 7.5 g/dL (6.3-8.2)
[2018-04-09 23:26] LABS: Troponin I 0.902 ng/mL (0.000-0.034)
[2018-04-09] MEDS: PIPERACILLIN-TAZOBACTAM 3.375 GM in SODIUM CHLORIDE 0.9% 100 ML IVPB SCH (23:42)
[2018-04-09] MEDS: ATORVASTATIN 40 MG TAB PO SCH (23:56)
[2018-04-10] MEDS: SODIUM CHLORIDE 0.9% 1,000 ML IV SCH (04:00)
[2018-04-10 05:16] LABS: Basophils # (A) 0.1 k/uL (0-0.2); Basophils % (A) 1 %; Eosinophils # (A) 0.1 k/uL (0-0.7); Eosinophils % (A) 1 %; HCT 45.9 % (39.0-53.0); HGB 14.7 gm/dL (13.0-17.5); Lymphocytes # (A) 0.8 k/uL (1.0-4.8); Lymphocytes % (A) 5 %; MCH 30.4 pg (25.0-35.0); MCHC 31.9 g/dL (31.0-37.0); MCV 95.1 fL (80.0-100.0); Mean Platelet Volume 7.6; Monocytes # (A) 0.9 k/uL (0-1.0); Monocytes % (A) 6 %; Neutrophils % (A) 88 %; Platelet Count 165 k/uL (150-450); RBC 4.83 m/uL (4.30-5.90); RDW 13.9 % (11.5-15.5); WBC 15.9 k/uL (3.8-10.6)
[2018-04-10 05:24] LABS: Calcium 7.6 mg/dL (8.4-10.2)
[2018-04-10] MEDS: IPRATROPIUM-ALBUTEROL 3 ML NEB INHALATION PRN ×2 (05:36→10:44)
[2018-04-10] MEDS: TOBRAMYCIN 0.3% OPHTH DROPS 5 ML BTL BOTH EYES SCH ×4 (06:30→17:28)
[2018-04-10] MEDS: PANTOPRAZOLE 40 MG TABLET PO SCH (07:01)
[2018-04-10] MEDS: INSULIN ASPART (NovoLOG) 100 UNIT/ML VIAL SQ SCH ×4 (07:02→20:54)
--- NOTE | 2018-04-10 07:07 | CONS ---
CONSULTATION DATE OF SERVICE: 04/09/2018. REASON FOR CONSULTATION: Possible sepsis. HISTORY OF PRESENT ILLNESS: The patient is a 77-year-old male who apparently presented to the [facility] where the patient was complaining of some abdominal distention and discomfort in the left side of the abdominal area. The patient also was having some shortness of breath and apparently the patient did have elevated D-dimer with concern for possible PE. The patient was subsequently transferred to the [facility] as the patient did have elevated creatinine and CT angiogram. The patient did have a V/Q scan completed here which was low probability. The patient did have fever of 100 degrees Fahrenheit. Apparently the patient also having increasing shortness of breath and did have a cough, bringing up some sputum. The patient denies having any nausea, no vomiting, though. Denies any diarrhea or constipation. No burning or frequency of urine. The patient did have low-grade fever of 100 but did not have any elevated white count either yesterday or today. His urine was negative. However, the patient did have elevated lactic acidosis up to 6.4 with the liver enzymes being normal. Creatinine has been elevated as well. Influenza serology was negative. Patient did receive a dose of Rocephin and Zithromax. The patient subsequently has been admitted to the ICU. Infectious disease was consulted for further recommendation regarding antibiotic therapy. REVIEW OF SYSTEMS: Positive points have been mentioned in HPI. Rest of the systems has been negative. PAST MEDICAL HISTORY: Diabetes mellitus, hypertension, obstruction, gout, psoriasis, chronic kidney disease. PAST SURGICAL HISTORY: Right carotid endarterectomy, bilateral cataract surgery. SOCIAL HISTORY: No history of smoking, drinking, or drug use. FAMILY HISTORY: No pertinent findings noticed. ALLERGIES: No known drug allergies. MEDICATION: Currently include the patient has received one dose of Rocephin and Zithromax in the ER yesterday. The patient is on Restoril, Protonix, Lopressor, NovoLog, Neurontin, Lasix, lotion, Eliquis and Xanax. PHYSICAL EXAMINATION: Blood pressure is 127/58 with a pulse of 83, temperature 98.1. He is 93% on 4 L nasal cannula. General description is an elderly male lying in bed in no distress. No tachypnea or accessory muscle of respiration use. HEENT: Shows slight pallor. No scleral icterus. Oral mucosa membranes are dry. No pharyngeal erythema or thrush. Neck trachea central. No thyromegaly. Lungs are unlabored breathing. Clear to auscultation anteriorly. Heart S1, S2. Irregular rhythm. ABDOMEN: Soft, nondistended. No guarding. No rigidity. No organomegaly. Extremities: The patient has psoriatic patch to the left leg, but no active cellulitis. Neurological patient is awake, alert, oriented times three. Mood and affect normal. LABS: Hemoglobin is 14.8, white count 5.3, BUN of 50, creatinine is 2.94. Electrolytes have been normal. Liver enzymes are normal. Lactic acid elevated. Urine was negative. Influenza serology was negative. DIAGNOSTIC IMPRESSION AND PLAN: 1. Patient admitted to the hospital with difficulty in breathing in this patient initially presented to hospital at [place] with mostly left lower abdominal discomfort. The patient did have elevated lactic acid with question of possible ischemic colitis that needs to be ruled out as the patient did have a low-grade fever. However, no significant elevated white count and no significant tenderness was noted. Patient currently no other clinical focus of infection, was negative, report negative for pneumonia and lower extremities some psoriatic patches, but no definitive cellulitis. 2. The patient did have a borderline kidney function and for toxicity. PLAN: 1. CT of chest and abdomen has been ordered. Will follow results. 2. Will start the patient on Zosyn 3.375 g q.12 to adjust his kidney function. 3. We will follow up on clinical condition and culture to further adjust medication if needed thank you for this consultation. Will follow this patient with you. MMODL / IJN: [id number] /
[2018-04-10 07:09] LABS: Glucose,Whole Blood 185 mg/dL (75-99)
[2018-04-10] MEDS: INSULN ASP PRT/INSULIN ASPART 100 UNIT/ML 10 ML VIAL SQ SCH ×2 (07:39→17:27)
[2018-04-10] MEDS ORDERED: IPRATROPIUM-ALBUTEROL 3 ML NEB INHALATION SCH (08:00)
[2018-04-10] MEDS: CLOTRIMAZOLE 1% CREAM 15 GM TUBE TOPICAL SCH ×2 (08:55→20:40)
[2018-04-10] MEDS: amLODIPine 10 MG TAB PO SCH (08:55)
[2018-04-10] MEDS: APIXABAN 5 MG TAB PO SCH ×2 (08:55→20:40)
[2018-04-10] MEDS: METOPROLOL TARTRATE 25 MG TAB PO SCH ×2 (08:56→20:40)
[2018-04-10] MEDS: FUROSEMIDE 20 MG TAB PO SCH (08:56)
[2018-04-10] MEDS: GABAPENTIN 100 MG CAP PO SCH ×3 (08:56→21:54)
[2018-04-10] MEDS: FLECAINIDE 50 MG TAB PO SCH ×2 (08:56→20:39)
[2018-04-10] MEDS: methylPREDNISolone SOD SUCCI 125 MG/2 ML VIAL IV SCH ×2 (11:31→17:26)
--- NOTE | 2018-04-10 11:40 | XR ---
EXAMINATION TYPE: XR chest 1V portable DATE OF EXAM: 04/10/2018 COMPARISON: 04/08/2018 INDICATION: Short of breath TECHNIQUE: Single frontal view of the chest is obtained. FINDINGS: The heart size is normal. The pulmonary vasculature is normal. Minimal lingular infiltrate is not excluded. Some minimal infiltrate is at the right base lower lobe. Lungs otherwise appear clear. IMPRESSION: 1. There may be some lingular atelectasis present. 2. Minimal infiltrate is at the right lower lobe. 3. Lungs otherwise appear clear.
[2018-04-10 12:24] LABS: Glucose,Whole Blood 132 mg/dL (75-99)
[2018-04-10] MEDS: AZITHROMYCIN 500 MG TAB PO SCH (12:49)
[2018-04-10] MEDS: guaiFENesin-DM 100-10MG/5ML 10 ML CUP PO PRN ×2 (12:49→20:40)
[2018-04-10] MEDS: IPRATROPIUM-ALBUTEROL 3 ML NEB INHALATION SCH ×3 (13:26→20:27)
--- NOTE | 2018-04-10 14:27 | P.PN ---
Subjective Progress Note Date: 04/10/18 Principal diagnosis: Shortness of breath, likely secondary to atrial fibrillation/flutter, tracheobronchitis This is a 77-year-old white male patient of Dr. Bolaños, there was transferred from [facility] on 04/08/2018 with complaints of shortness of breath, patient did have a low-grade fever with a temp of 100F, has been afebrile at this facility, did complain of some coughing, but denied any chest pain, denied any palpitations, denied any swelling in the lower extremities. No nausea, vomiting or diarrhea. X-ray showed no acute cardiopulmonary process, apparently d-dimer was elevated at [place] and VQ scan showed low probability for pulmonary embolus. White blood cell count of 4.6, hemoglobin of 15.4, platelet count of 158, sodium is 133, potassium is 5.4 , chloride is 97, CO2 is 14, B1 is 43 and creatinine is 3.1. Plasma lactic acid was at 6.4. Troponins were elevated at 0.406, 0.708, 0.902, 0.874. Total CK was 1489. In [place] screen was negative, urinalysis showed 4+ glucose, 1+ ketones, negative leuks, negative white cells. Acetone negative. No urinary symptoms. Patient was started on Zosyn initially. The patient seen in follow- up in the intensive care unit, apparently last night he had a episode of agitation, patient was delirious, he had taken his oxygen off, and the probably was acutely hypoxemic. He was given a dose of Haldol, this morning he is awake and alert, oriented 3. In no acute distress, his pulse ox is 95%, on 4 L per nasal cannula, afebrile, blood and urine cultures are still pending. Patient denies any fever or chills. Hemodynamically stable. He is quite a bit more bronchospastic on today's exam. Follow-up chest x-ray today shows some lingular atelectasis, minimal infiltrate at the right lower lobe. CT of chest, abdomen and pelvis showed grossly clear lungs, no pleural effusion or pneumothorax, no bowel obstruction, normal gas pattern, no greater than 1 cm abdominal pelvic lymph nodes. Objective - Vital Signs Vital signs: Vital Signs Temp 97.5 F L 04/10/18 12:00 Pulse 78 04/10/18 13:38 Resp 33 H 04/10/18 12:00 BP 133/70 04/10/18 12:00 Pulse Ox 95 04/10/18 12:00 Intake & Output 04/09/18 04/10/18 04/10/18 18:59 06:59 18:59 Intake Total 2093.886 1105 1980 Output Total 1690 1820 2049 Balance 403.886 -715 -70 Weight 113.9 kg 113 kg Intake: IV 500 525 300 0.9 @ 100 100 Piperacillin-Tazobactam 3 100 .375 gm In Sodium Chloride 0.9% 100 ml @ 25 mls/hr IVPB Q12H KAM Rx# :[id number] Sodium Chloride 0.9% 1, 400 425 250 000 ml @ 50 mls/hr IV . Q20H KAM Rx#:[id number] cefTRIAXone 1 gm In 50 Sodium Chloride 0.9% 50 ml @ 100 mls/hr IVPB Q24H KAM Rx#:[id number] Intake, IV Titration 28.886 Amount Insulin Regular 100 unit 28.886 In Sodium Chloride 0.9% 100 ml @ Per Protocol IV .Q0M KAM Rx#:[id number] Oral 9862 [id number] 3665 Output: Urine 1689 1819 2049 Other: Voiding Method Indwelling Catheter Urinal Urinal # Voids 1 # Bowel Movements 1 - Exam GENERAL EXAM: Alert, active, 77-year-old white male patient on 4 L per nasal cannula comfortable in no apparent distress. HEAD: Normocephalic/atraumatic. EYES: Normal reaction of pupils, equal size. Conjunctiva pink, sclera white. NOSE: Clear with pink turbinates. THROAT: No erythema or exudates. NECK: No masses, no JVD, no thyroid enlargement, no adenopathy. CHEST: No chest wall deformity. Symmetrical expansion. LUNGS: Equal air entry with diffuse wheezes CVS: Regular rate and rhythm, normal S1 and S2, no gallops, no murmurs, no rubs ABDOMEN: Soft, nontender. No hepatosplenomegaly, normal bowel sounds, no guarding or rigidity. EXTREMITIES: No clubbing, no edema, no cyanosis, 2+ pulses and upper and lower extremities. MUSCULOSKELETAL: Muscle strength and tone normal. SPINE: No scoliosis or deformity SKIN: No rashes CENTRAL NERVOUS SYSTEM: Alert and oriented -3. No focal deficits, tone is normal in all 4 extremities. PSYCHIATRIC: Alert and oriented -3. Appropriate affect. Intact judgment and insight. - Labs CBC & Chem 7: 04/10/18 04:35 04/10/18 04:35 Labs: Abnormal Lab Results - Last 24 Hours (Table) 04/09/18 04/09/18 04/09/18 Range/Units 13:59 14:53 15:00 WBC (3.8-10.6) k/uL Neutrophils # (1.3-7.7) k/uL Lymphocytes # (1.0-4.8) k/uL ABG pH (7.35-7.45) Sodium (137-145) mmol/L Carbon Dioxide (22-30) mmol/L BUN (9-20) mg/dL Creatinine (0.66-1.25) mg/dL Glucose (74-99) mg/dL POC Glucose (mg/dL) 228 H 170 H (75-99) mg/dL Plasma Lactic Acid Hussein (0.7-2.0) mmol/L Calcium (8.4-10.2) mg/dL Phosphorus (2.5-4.5) mg/dL AST (17-59) U/L Total Creatine Kinase (55-170) U/L CK-MB (CK-2) (0.0-2.4) ng/mL Troponin I 0.708 H* (0.000-0.034) ng/mL 04/09/18 04/09/18 04/09/18 Range/Units 22:25 22:25 22:25 WBC 15.8 H (3.8-10.6) k/uL Neutrophils # 14.1 H (1.3-7.7) k/uL Lymphocytes # 0.7 L (1.0-4.8) k/uL ABG pH (7.35-7.45) Sodium 134 L (137-145) mmol/L Carbon Dioxide 21 L (22-30) mmol/L BUN 54 H (9-20) mg/dL Creatinine 2.23 H (0.66-1.25) mg/dL Glucose (74-99) mg/dL POC Glucose (mg/dL) (75-99) mg/dL Plasma Lactic Acid Hussein 3.5 H* (0.7-2.0) mmol/L Calcium 7.4 L (8.4-10.2) mg/dL Phosphorus 5.1 H (2.5-4.5) mg/dL AST 71 H (17-59) U/L Total Creatine Kinase (55-170) U/L CK-MB (CK-2) (0.0-2.4) ng/mL Troponin I (0.000-0.034) ng/mL 04/09/18 04/09/18 04/10/18 Range/Units 22:25 22:30 04:35 WBC 15.9 H (3.8-10.6) k/uL Neutrophils # 14.0 H (1.3-7.7) k/uL Lymphocytes # 0.8 L (1.0-4.8) k/uL ABG pH 7.31 L (7.35-7.45) Sodium (137-145) mmol/L Carbon Dioxide (22-30) mmol/L BUN (9-20) mg/dL Creatinine (0.66-1.25) mg/dL Glucose (74-99) mg/dL POC Glucose (mg/dL) (75-99) mg/dL Plasma Lactic Acid Hussein (0.7-2.0) mmol/L Calcium (8.4-10.2) mg/dL Phosphorus (2.5-4.5) mg/dL AST (17-59) U/L Total Creatine Kinase 1489 H* (55-170) U/L CK-MB (CK-2) 15.9 H (0.0-2.4) ng/mL Troponin I 0.902 H* (0.000-0.034) ng/mL 04/10/18 04/10/18 04/10/18 Range/Units 04:35 04:35 06:49 WBC (3.8-10.6) k/uL Neutrophils # (1.3-7.7) k/uL Lymphocytes # (1.0-4.8) k/uL ABG pH (7.35-7.45) Sodium 136 L (137-145) mmol/L Carbon Dioxide (22-30) mmol/L BUN 52 H (9-20) mg/dL Creatinine 2.08 H (0.66-1.25) mg/dL Glucose 128 H (74-99) mg/dL POC Glucose (mg/dL) 185 H (75-99) mg/dL Plasma Lactic Acid Hussein (0.7-2.0) mmol/L Calcium 7.6 L (8.4-10.2) mg/dL Phosphorus (2.5-4.5) mg/dL AST (17-59) U/L Total Creatine Kinase (55-170) U/L CK-MB (CK-2) (0.0-2.4) ng/mL Troponin I 0.874 H* (0.000-0.034) ng/mL 04/10/18 Range/Units 11:54 WBC (3.8-10.6) k/uL Neutrophils # (1.3-7.7) k/uL Lymphocytes # (1.0-4.8) k/uL ABG pH (7.35-7.45) Sodium (137-145) mmol/L Carbon Dioxide (22-30) mmol/L BUN (9-20) mg/dL Creatinine (0.66-1.25) mg/dL Glucose (74-99) mg/dL POC Glucose (mg/dL) 132 H (75-99) mg/dL Plasma Lactic Acid Hussein (0.7-2.0) mmol/L Calcium (8.4-10.2) mg/dL Phosphorus (2.5-4.5) mg/dL AST (17-59) U/L Total Creatine Kinase (55-170) U/L CK-MB (CK-2) (0.0-2.4) ng/mL Troponin I (0.000-0.034) ng/mL Microbiology - Last 24 Hours (Table) 04/09/18 10:50 Urine Culture - Preliminary Urine,Catheterized 04/08/18 13:50 Blood Culture - Preliminary Blood No Growth after 24 hours Assessment and Plan Plan: Assessment: #1. Acute hypoxemic respiratory failure related to atrial fibrillation/flutter with rapid ventricular response, and tracheobronchitis. Chest x-ray showed no acute pulmonary processm, VQ scan showed low probability for PE #2. Lactic acidosis, possibly related to sepsis, and so far CT chest/abdomen and pelvis was negative, cultures are negative #3. Elevated troponins #4. A. fib with RVR #5. Acute kidney injury #6. Episode of acute agitation, delirium, likely related to hypoxemia, improved #6. Chronic kidney disease stage III #7. History of carotid artery stenosis #8. GERD, psoriasis, diabetes mellitus type 2 Plan: We will stop the IV Zosyn, we will switch IV antibiotics to Zithromax and Rocephin, so far the blood cultures are negative. No fever or chills, patient is more bronchospastic on today's exam, chest x-ray and CT chest showed clear lungs. We will add IV Solu-Medrol, nebulized bronchodilators, Pulmicort. Patient is afebrile, hemodynamically stable. Anticoagulated with Eliquis for his atrial fibrillation. His rate is better controlled. Cardiology is following. I performed a history & physical examination of the patient and discussed their management with my nurse practitioner, Crystal Matos. I reviewed the nurse practitioner's note and agree with the documented findings and plan of care. Lung sounds are positive for diffuse wheezes throughout the lung arnold. The findings and the impression was discussed with the patient. I attest to the documentation by the nurse practitioner. Time with Patient: Less than 30
[2018-04-10 17:27] LABS: Glucose,Whole Blood 183 mg/dL (75-99)
--- NOTE | 2018-04-10 19:41 | PN ---
PROGRESS NOTE DATE OF SERVICE: 04/10/2018 REASON FOR FOLLOWUP: Infection. INTERVAL HISTORY: The patient is afebrile. The patient is breathing comfortably. He is hemodynamically stable. He denies having any chest pain. He did have some cough but did not bring up any sputum. No abdominal pain and no diarrhea. PHYSICAL EXAMINATION: Blood pressure 133/70 with a pulse of 78, temperature 97.5. He is 95% on 4 L nasal cannula. General description is an elderly male up in the bed in no distress. RESPIRATORY SYSTEM: Unlabored breathing with decreased breath sounds at the base. No wheeze. HEART: S1, S2. Regular rate and rhythm. ABDOMEN: Soft. No tenderness. EXTREMITIES: No edema of the feet. GENITOURINARY AREA: The patient did have penile implant, but no evidence of any swelling or redness. LABS: Hemoglobin 14.7, white count 15.9 with a BUN of 52, creatinine 2.08. DIAGNOSTIC IMPRESSION AND PLAN: Patient admitted to hospital with possible sepsis with initial concern for possible abdominal source, as the patient was complaining of some abdominal distention and pain. However, the patient had a CT of the chest, abdomen and pelvis completed that did not show any active abnormality. Chest x-ray with concern for possible right middle or lower lobe infiltrate. The patient's antibiotic has been switched to Rocephin and Zithromax by Pulmonary. We will monitor the patient closely. Continue with supportive care. ELISHA / BENITO: [id number] /
[2018-04-10] MEDS ORDERED: PIPERACILLIN-TAZOBACTAM 3.375 GM in SODIUM CHLORIDE 0.9% 100 ML IVPB SCH (20:00)
[2018-04-10] MEDS: BUDESONIDE 1 MG/2 ML NEBU INHALATION SCH (20:27)
[2018-04-10] MEDS: ALPRAZolam 0.25 MG TAB PO PRN ×2 (20:39→20:43)
[2018-04-10] MEDS: ATORVASTATIN 40 MG TAB PO SCH (20:40)
[2018-04-10 20:47] LABS: Glucose,Whole Blood 258 mg/dL (75-99)
--- NOTE | 2018-04-10 22:17 | PN ---
PROGRESS NOTE This patient was admitted with acute shortness of breath and acute exacerbation of COPD. Patient had possible underlying sepsis. In view of the elevated lactic acid level, patient was evaluated by Dr. Mayorga, then patient was started on Zosyn. CT of the abdomen did not show any definite evidence of colitis. Patient's heart rate is 78 per minute. Blood pressure is 133/70 mmHg. First and second heart sounds are heard. Lungs reveal bilateral diminished air entry. Patient remains in normal sinus rhythm. He is tolerating flecainide well. Patient is also getting Eliquis 5 mg b.i.d. MMODL / IJN: [id number] /
--- NOTE | 2018-04-10 22:32 | PN ---
PROGRESS NOTE DATE OF SERVICE: 04/10/2018 This 77-year-old gentleman admitted with COPD, acute exacerbation, as well as possible acute purulent tracheobronchitis. Last night he was severely confused. Pulse ox dropped to 80%. Patient is confused. Patient admission medications. The repeat chest x-ray was done which showed some lingular atelectasis and minimal infiltrate in the right upper lobe. A chest, abdomen and pelvis CT scan was done yesterday which showed no acute fracture; otherwise coronary calcifications. The patient also gives a history of cutting the prepuce using a hatchet when the patient was in his 20s to get rid of phimosis. Subsequently patient tried to cauterize with a candle apparently and subsequently it got infected and he had to go to a doctor and was admitted to [facility] for the same. Currently the confusion is much better at this time. Past medical history reviewed. REVIEW OF SYSTEMS: CARDIOVASCULAR SYSTEM: No angina, palpitations. RESPIRATORY SYSTEM: As mentioned earlier. GI: No nausea, vomiting. : No dysuria or retention. NERVOUS SYSTEM: No numbness, weakness. CURRENT MEDICATIONS: 1. Tylenol 500 mg q.6 p.r.n. 2. [place] 5 mg. 3. DuoNeb q.i.d. and p.r.n. 4. Xanax 0.25 t.i.d. 5. Norvasc 10 mg. 6. Eliquis 5 mg p.o. daily. 7. Lipitor. 8. Zithromax 500 mg daily. 9. Pulmicort. 10.Rocephin 1 gram daily. 11.Lotrimin. 12.Tambocor. 13.Lasix. 14.Neurontin. 15.Robitussin. 16.Haldol. 17.NovoLog scale. 18.Solu-Medrol 60 IV q.6. 19.Protonix. 20.Tobrex. PHYSICAL EXAMINATION: Patient is alert and oriented x3. Pulse 87, blood pressure 147/70, respiration 26, temperature 98.2, pulse ox 92% on 4 L. HEENT: Conjunctivae normal. NECK: No jugular venous distention. CARDIOVASCULAR SYSTEM: S1, S2 muffled. RESPIRATORY SYSTEM: Breath sounds diminished at the bases. Bilateral scattered rhonchi and coarse crackles. ABDOMEN: Soft, non-tender. LEGS: No edema. No swelling. NERVOUS SYSTEM: No focal deficit. LABS: WBC 15.9, hemoglobin 14.7, glucose 128. Troponin 0.874. ASSESSMENT: 1. Possible chronic obstructive pulmonary disease, acute exacerbation, with acute purulent tracheobronchitis with acute hypoxic respiratory failure. No evidence of pulmonary embolus. 2. Atrial fibrillation with a fast ventricular rate. 3. Change in mental status, metabolic encephalopathy, multifactorial; possible acute hypoxia. 4. Diabetes mellitus, type 2. 5. Acute on chronic kidney disease. 6. Elevated lactic acid, possible sepsis. 7. No evidence of ischemic colitis. 8. Chronic kidney disease, stage III, baseline. 9. Hypertension. 10.History of carotid artery blockage. 11.History of gastroesophageal reflux disease. 12.History of psoriasis. 13.Chronic kidney disease, stage III. 14.Diabetes mellitus, type 2, uncontrolled. 15.Hypocalcemia. 16.Hyponatremia. 17.Hyperkalemia, present on admission. 18.FULL CODE. RECOMMENDATIONS AND DISCUSSION: In this 77-year-old gentleman who presented with multiple complex medical issues , we will monitor the patient closely, continue the current medications, continue with symptomatic treatment, optimize bronchodilator treatment, empiric antibiotics, steroids. Closely follow with Pulmonary. Discussed with Dr. Velázquez. Prognosis guarded because of multiple complex medical issues. Further recommendations to follow. MMODL / IJN: [id number] / MTDD
[2018-04-11] MEDS: IPRATROPIUM-ALBUTEROL 3 ML NEB INHALATION SCH ×6 (00:35→20:39)
[2018-04-11] MEDS: methylPREDNISolone SOD SUCCI 125 MG/2 ML VIAL IV SCH ×4 (00:35→17:16)
[2018-04-11] MEDS: TOBRAMYCIN 0.3% OPHTH DROPS 5 ML BTL BOTH EYES SCH ×4 (00:35→17:18)
[2018-04-11] MEDS: SODIUM CHLORIDE 0.9% 1,000 ML IV SCH (01:29)
[2018-04-11 01:46] LABS: Glucose,Whole Blood 228 mg/dL (75-99)
[2018-04-11 05:56] LABS: Basophils % (A) 0 %; Eosinophils # (A) 0.1 k/uL (0-0.7); Eosinophils % (A) 1 %; HCT 47.2 % (39.0-53.0); HGB 14.8 gm/dL (13.0-17.5); Lymphocytes # (A) 0.4 k/uL (1.0-4.8); Lymphocytes % (A) 3 %; MCH 29.2 pg (25.0-35.0); MCHC 31.3 g/dL (31.0-37.0); MCV 93.2 fL (80.0-100.0); Mean Platelet Volume 6.6; Monocytes # (A) 0.2 k/uL (0-1.0); Monocytes % (A) 2 %; Neutrophils # (A) 9.9 k/uL (1.3-7.7); Neutrophils % (A) 93 %; Platelet Count 174 k/uL (150-450); RBC 5.07 m/uL (4.30-5.90); WBC 10.6 k/uL (3.8-10.6)
[2018-04-11 06:05] LABS: Calcium 7.5 mg/dL (8.4-10.2); Potassium 4.5 mmol/L (3.5-5.1)
[2018-04-11] MEDS: INSULIN ASPART (NovoLOG) 100 UNIT/ML VIAL SQ SCH ×4 (07:01→21:34)
[2018-04-11 07:07] LABS: Glucose,Whole Blood 215 mg/dL (75-99)
[2018-04-11] MEDS: BUDESONIDE 1 MG/2 ML NEBU INHALATION SCH ×2 (08:07→20:39)
--- NOTE | 2018-04-11 08:24 | XR ---
EXAMINATION TYPE: XR chest 1V portable DATE OF EXAM: 04/11/2018 Comparison: 04/10/2018 Clinical History: 77-year-old male SOB Findings: Heart borderline enlarged. Diffuse interstitial and vascular prominence. Some central peribronchial c uffing especially at the left hilum. Patchy bibasilar opacities persist, slightly increased on the le ft.. No sizable effusion. Impression: 1. Correlate to exclude mild pulmonary vascular congestion. 2. Mild patchy bibasilar atelectasis and/or infiltrates, slightly increased on the left.
[2018-04-11] MEDS: guaiFENesin-DM 100-10MG/5ML 10 ML CUP PO PRN (08:52)
[2018-04-11] MEDS: INSULN ASP PRT/INSULIN ASPART 100 UNIT/ML 10 ML VIAL SQ SCH ×2 (08:52→17:17)
[2018-04-11] MEDS: APIXABAN 5 MG TAB PO SCH ×2 (08:53→21:34)
[2018-04-11] MEDS: METOPROLOL TARTRATE 25 MG TAB PO SCH ×2 (08:53→21:34)
[2018-04-11] MEDS: FUROSEMIDE 20 MG TAB PO SCH (08:53)
[2018-04-11] MEDS: GABAPENTIN 100 MG CAP PO SCH ×3 (08:53→21:34)
[2018-04-11] MEDS: AZITHROMYCIN 500 MG TAB PO SCH (08:53)
[2018-04-11] MEDS: amLODIPine 10 MG TAB PO SCH (08:53)
[2018-04-11] MEDS: CLOTRIMAZOLE 1% CREAM 15 GM TUBE TOPICAL SCH ×2 (08:53→21:34)
[2018-04-11] MEDS: PANTOPRAZOLE 40 MG TABLET PO SCH (08:53)
[2018-04-11] MEDS: FLECAINIDE 50 MG TAB PO SCH ×2 (09:01→21:34)
--- NOTE | 2018-04-11 12:24 | PN ---
PROGRESS NOTE This patient's medical records reviewed. Patient was admitted with acute respiratory distress, acute bronchitis and possible pneumonia. Patient had evidence of sepsis with elevated lactic acid level, exact source of infection unclear. Possibly patient is being treated for pneumonia. The patient's CT scan was negative for any intraabdominal infection. The patient remains now in normal sinus rhythm. He is afebrile. Blood pressure is 150/80 mmHg. First and second heart sounds are heard. Lungs examination revealed bilateral scattered wheezes. I will continue the patient on current medications including the Eliquis 5 mg b.i.d.. MMODL / IJN: [id number] /
[2018-04-11 12:28] LABS: Glucose,Whole Blood 207 mg/dL (75-99)
--- NOTE | 2018-04-11 16:24 | P.PN ---
Subjective Progress Note Date: 04/11/18 This is a 77-year-old white male patient of Dr. Bolaños, there was transferred from [facility] on 04/08/2018 with complaints of shortness of breath, patient did have a low-grade fever with a temp of 100F, has been afebrile at this facility, did complain of some coughing, but denied any chest pain, denied any palpitations, denied any swelling in the lower extremities. No nausea, vomiting or diarrhea. X-ray showed no acute cardiopulmonary process, apparently d-dimer was elevated at [place] and VQ scan showed low probability for pulmonary embolus. White blood cell count of 4.6, hemoglobin of 15.4, platelet count of 158, sodium is 133, potassium is 5.4 , chloride is 97, CO2 is 14, B1 is 43 and creatinine is 3.1. Plasma lactic acid was at 6.4. Troponins were elevated at 0.406, 0.708, 0.902, 0.874. Total CK was 1489. In [place] screen was negative, urinalysis showed 4+ glucose, 1+ ketones, negative leuks, negative white cells. Acetone negative. No urinary symptoms. Patient was started on Zosyn initially. The patient seen in follow- up in the intensive care unit, apparently last night he had a episode of agitation, patient was delirious, he had taken his oxygen off, and the probably was acutely hypoxemic. He was given a dose of Haldol, this morning he is awake and alert, oriented 3. In no acute distress, his pulse ox is 95%, on 4 L per nasal cannula, afebrile, blood and urine cultures are still pending. Patient denies any fever or chills. Hemodynamically stable. He is quite a bit more bronchospastic on today's exam. Follow-up chest x-ray today shows some lingular atelectasis, minimal infiltrate at the right lower lobe. CT of chest, abdomen and pelvis showed grossly clear lungs, no pleural effusion or pneumothorax, no bowel obstruction, normal gas pattern, no greater than 1 cm abdominal pelvic lymph nodes. On today's evaluation of 04/11/2018, seeing this patient for a follow-up. The patient is doing well. No specific complaints. Less short of breath and last bronchus spastic and wheezy compared to yesterday's evaluation. Noted the patient a negative CAT scan of the chest. Nevertheless he had typical symptoms of acute or chronic bronchitis with reactive bronchospasm or wheezing. 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 No chest pain. No altered mentation. No nausea or vomiting. Cardiac rhythm is still sinus. No hypotension. The patient had developed an acute kidney injury with a creatinine of 3.1 at time of admission his creatinine is down to 1.6. He is responding to IV fluids. CAT scan of the abdomen and pelvis showed no significant abnormalities. Echocardiac Carlo was also noted. He has a preserved LV function with an ejection fraction of 60-65%. Objective - Vital Signs Vital signs: Vital Signs Temp 98 F 04/11/18 12:00 Pulse 84 04/11/18 12:18 Resp 30 H 04/11/18 12:00 BP 136/72 04/11/18 12:00 Pulse Ox 95 04/11/18 12:00 Intake & Output 04/10/18 04/11/18 04/11/18 18:59 06:59 18:59 Intake Total 3140 1080 1200 Output Total 3250 1450 350 Balance -110 -370 850 Weight 112 kg Intake: IV 500 600 400 Sodium Chloride 0.9% 1, 450 600 400 000 ml @ 50 mls/hr IV . Q20H KAM Rx#:[id number] cefTRIAXone 1 gm In 50 Sodium Chloride 0.9% 50 ml @ 100 mls/hr IVPB Q24H KAM Rx#:[id number] Oral 2640 480 800 Output: Urine 3250 1450 350 Other: Voiding Method Urinal Urinal Urinal # Voids 1 # Bowel Movements 1 - Exam GENERAL EXAM: Alert, active, 77-year-old white male patient on 4 L per nasal cannula comfortable in no apparent distress. HEAD: Normocephalic/atraumatic. EYES: Normal reaction of pupils, equal size. Conjunctiva pink, sclera white. NOSE: Clear with pink turbinates. THROAT: No erythema or exudates. NECK: No masses, no JVD, no thyroid enlargement, no adenopathy. CHEST: No chest wall deformity. Symmetrical expansion. LUNGS: Equal air entry with diffuse wheezes are still present although improved compared to yesterday. CVS: Regular rate and rhythm, normal S1 and S2, no gallops, no murmurs, no rubs ABDOMEN: Soft, nontender. No hepatosplenomegaly, normal bowel sounds, no guarding or rigidity. EXTREMITIES: No clubbing, no edema, no cyanosis, 2+ pulses and upper and lower extremities. MUSCULOSKELETAL: Muscle strength and tone normal. SPINE: No scoliosis or deformity SKIN: No rashes CENTRAL NERVOUS SYSTEM: Alert and oriented -3. No focal deficits, tone is normal in all 4 extremities. PSYCHIATRIC: Alert and oriented -3. Appropriate affect. Intact judgment and insight. - Labs CBC & Chem 7: 04/11/18 05:35 04/11/18 05:35 Labs: Abnormal Lab Results - Last 24 Hours (Table) 04/10/18 04/10/18 04/11/18 Range/Units 16:57 20:36 01:34 Neutrophils # (1.3-7.7) k/uL Lymphocytes # (1.0-4.8) k/uL BUN (9-20) mg/dL Creatinine (0.66-1.25) mg/dL Glucose (74-99) mg/dL POC Glucose (mg/dL) 183 H 258 H 228 H (75-99) mg/dL Calcium (8.4-10.2) mg/dL 04/11/18 04/11/18 04/11/18 Range/Units 05:35 05:35 06:56 Neutrophils # 9.9 H (1.3-7.7) k/uL Lymphocytes # 0.4 L (1.0-4.8) k/uL BUN 41 H (9-20) mg/dL Creatinine 1.64 H (0.66-1.25) mg/dL Glucose 200 H (74-99) mg/dL POC Glucose (mg/dL) 215 H (75-99) mg/dL Calcium 7.5 L (8.4-10.2) mg/dL 04/11/18 Range/Units 11:58 Neutrophils # (1.3-7.7) k/uL Lymphocytes # (1.0-4.8) k/uL BUN (9-20) mg/dL Creatinine (0.66-1.25) mg/dL Glucose (74-99) mg/dL POC Glucose (mg/dL) 207 H (75-99) mg/dL Calcium (8.4-10.2) mg/dL Microbiology - Last 24 Hours (Table) 04/08/18 13:50 Blood Culture - Preliminary Blood No Growth after 72 hours 04/09/18 10:50 Urine Culture - Final Urine,Catheterized Assessment and Plan Plan: Assessment: #1. Acute hypoxemic respiratory failure secondary to atrial fibrillation/ flutter with rapid ventricular response, and tracheobronchitis. Chest x-ray showed no acute pulmonary processm, VQ scan showed low probability for PE. The patient went back to normal sinus rhythm. The patient also developed severe bronchospasm wheezing and currently is improving with a combination of bronchodilators and steroids. #2. Lactic acidosis, possibly related to sepsis, and so far CT chest/abdomen and pelvis was negative, cultures are negative, recovered #3. Elevated troponins, nonspecific #4. A. fib with RVR, currently in normal sinus rhythm #5. Acute kidney injury, improving the creatinine is down to 1.6 #6. Episode of acute agitation, delirium, likely related to hypoxemia, improved #6. Chronic kidney disease stage III #7. History of carotid artery stenosis #8. GERD #9 psoriasis #10 diabetes mellitus type 2 PLAN Continue same treatment. The patient is on a combination of DuoNeb nebulized treatments around the clock. We'll continue IV Solu Medrol for another 24 hours. Keep the patient on bronchodilators. Monitor the blood sugar and treat accordingly. Cardiac rhythm is sinus. He is on long-term articulation with Eliquis. Rates controlled for now. Echocardiac Carlo was noted. Renal function continues to improve. We'll continue to follow and make further recommendations based on his progress.
[2018-04-11 17:41] LABS: Glucose,Whole Blood 116 mg/dL (75-99)
[2018-04-11] MEDS ORDERED: FUROSEMIDE 10 MG/ML 4 ML VIAL IV STA (18:01)
[2018-04-11] MEDS: DILTIAZEM 125 MG in SODIUM CHLORIDE 0.9% 100 ML IV SCH (18:12)
--- NOTE | 2018-04-11 18:45 | PN ---
PROGRESS NOTE DATE OF SERVICE: 04/11/2018 This 77-year-old gentleman who was admitted with COPD, acute exacerbation, acute purulent tracheobronchitis, respiratory failure, is on bronchodilators and steroids at this time. The patient is being closely monitored at this time. The patient is on IV antibiotics also. Patient had severe confusion related to severe hypoxemia the other day. Patient is monitored in the ICU. Past medical history reviewed. REVIEW OF SYSTEMS: CARDIOVASCULAR SYSTEM: As mentioned earlier. RESPIRATORY SYSTEM: As mentioned earlier. GI: No nausea, vomiting. : No dysuria or retention. NERVOUS SYSTEM: No numbness, weakness. CURRENT MEDICATIONS: Reviewed. They include: 1. Tylenol 500 mg q.6 p.r.n. 2. [place] 5 mg. 3. DuoNeb q.i.d. and p.r.n. 4. Xanax 0.25 t.i.d. 5. Norvasc 10 mg daily. 6. Eliquis 5 mg b.i.d. 7. Lipitor. 8. Zithromax 500 mg p.o. daily. 9. Rocephin 1 gram daily. 10.Tambocor 50 mg b.i.d. 11.Neurontin. 12.Robitussin. 13.Haldol. 14.NovoLog scale. 15.Solu-Medrol. 16.Protonix. 17.Restoril. 18.Tobrex. PHYSICAL EXAMINATION: Patient is alert, oriented x3. The pulse is 75, blood pressure 130/72, respiration 30, temperature 98 degrees, pulse ox 95% on 4 L. HEENT: Conjunctivae normal. Oral mucosa moist. NECK: No jugular venous distention. No carotid bruit. No lymph node enlargement. CARDIOVASCULAR SYSTEM: S1, S2 muffled. RESPIRATORY SYSTEM: Breath sounds diminished at the bases. Bilateral scattered rhonchi and crackles. Expiratory wheezing also heard. Accessory muscles of respiration are acting. ABDOMEN: Soft, obese, non-tender. LEGS: No edema. No swelling. NERVOUS SYSTEM: No focal deficit. LABS: WBC 10.6, hemoglobin 14.8. Sodium 140, potassium 4.5. Creatinine is 1.64. ASSESSMENT: 1. Chronic obstructive pulmonary disease, acute exacerbation, possibly with acute purulent tracheobronchitis with acute hypoxic respiratory failure. No evidence of pulmonary embolus. 2. Atrial fibrillation with fast ventricular rate, present on admission. 3. Change in mental status, anoxic metabolic encephalopathy, possibly secondary to hypoxia. 4. Diabetes mellitus, type 2. 5. Acute on chronic kidney disease. 6. Elevated lactic acid, possible sepsis. 7. No evidence of ischemic colitis. 8. Coronary artery disease, stage III, baseline. 9. Hypertension. 10.History of carotid artery blockage. 11.History of gastroesophageal reflux disease. 12.History of psoriasis. 13.Chronic kidney disease, stage III. 14.Diabetes mellitus, type 2, uncontrolled. 15.Hypocalcemia. 16.Hyponatremia. 17.Hyperkalemia, present on admission. 18.FULL CODE. RECOMMENDATIONS AND DISCUSSION: I recommend to continue current medications, continue with the monitoring, symptomatic treatment. Otherwise at this time I recommend continuing with broad-spectrum IV antibiotics, steroids, bronchodilators. Closely follow with Dr. Velázquez. Guarded prognosis. Further recommendations to follow. MMODL / IJN: [id number] /
--- NOTE | 2018-04-11 20:27 | PN ---
PROGRESS NOTE DATE OF SERVICE: 04/11/2018. REASON FOR FOLLOWUP: Possible pneumonia. INTERVAL HISTORY: The patient is currently afebrile. The patient has been breathing comfortably. The patient denies having any chest pain. No shortness of breath. Very minimal cough. No abdominal pain. No nausea, vomiting, or any diarrhea. PHYSICAL EXAMINATION: Blood pressure 136/70 with a pulse of 79, temperature 98. He is 95% on 4 L nasal cannula. General description is an elderly male up in the bed in no distress. RESPIRATORY SYSTEM: Unlabored breathing with decreased breath sounds at the bases. No wheeze. HEART: S1, S2. Regular rate and rhythm. ABDOMEN: Soft, no tenderness. No guarding, no rigidity. LABS: BUN of 41, creatinine 1.64. White count normalized to 10.6. Blood culture has been negative. No sputum has been collected. DIAGNOSTIC IMPRESSION AND PLAN: Patient admitted to the hospital with difficulty breathing with abdominal pain with low- grade fever, concern for possible pneumonia with the x-ray showing slight increase finding on the left. Patient currently on Rocephin as the pharmacy to continue, and to try to obtain a sputum. Continue supportive care. MMODL / IJN: [id number] /
[2018-04-11 20:59] LABS: Glucose,Whole Blood 139 mg/dL (75-99)
[2018-04-11] MEDS: ATORVASTATIN 40 MG TAB PO SCH (21:34)
[2018-04-12] MEDS: IPRATROPIUM-ALBUTEROL 3 ML NEB INHALATION SCH ×7 (00:01→23:30)
[2018-04-12] MEDS: methylPREDNISolone SOD SUCCI 125 MG/2 ML VIAL IV SCH ×5 (00:03→22:53)
[2018-04-12] MEDS: TOBRAMYCIN 0.3% OPHTH DROPS 5 ML BTL BOTH EYES SCH ×4 (00:05→17:56)
[2018-04-12] MEDS: SODIUM CHLORIDE 0.9% 1,000 ML IV SCH ×3 (00:08→23:30)
[2018-04-12] MEDS: DILTIAZEM 125 MG in SODIUM CHLORIDE 0.9% 100 ML IV SCH (04:37)
[2018-04-12 05:04] LABS: Basophils % (A) 0 %; Eosinophils # (A) 0.1 k/uL (0-0.7); Eosinophils % (A) 1 %; HCT 46.7 % (39.0-53.0); HGB 14.9 gm/dL (13.0-17.5); Lymphocytes # (A) 0.4 k/uL (1.0-4.8); Lymphocytes % (A) 3 %; MCH 29.3 pg (25.0-35.0); MCV 91.5 fL (80.0-100.0); Mean Platelet Volume 6.6; Monocytes # (A) 0.4 k/uL (0-1.0); Monocytes % (A) 3 %; Neutrophils # (A) 11.1 k/uL (1.3-7.7); Neutrophils % (A) 91 %; Platelet Count 195 k/uL (150-450); RDW 13.8 % (11.5-15.5); WBC 12.2 k/uL (3.8-10.6)
[2018-04-12 05:33] LABS: Calcium 7.7 mg/dL (8.4-10.2); Potassium 4.2 mmol/L (3.5-5.1)
[2018-04-12] MEDS: INSULIN ASPART (NovoLOG) 100 UNIT/ML VIAL SQ SCH ×4 (07:43→22:53)
[2018-04-12] MEDS: FUROSEMIDE 20 MG TAB PO SCH (08:11)
[2018-04-12] MEDS: AZITHROMYCIN 500 MG TAB PO SCH (08:11)
[2018-04-12] MEDS: APIXABAN 5 MG TAB PO SCH ×2 (08:11→22:52)
[2018-04-12] MEDS: METOPROLOL TARTRATE 25 MG TAB PO SCH (08:12)
[2018-04-12] MEDS: FLECAINIDE 50 MG TAB PO SCH ×2 (08:13→22:53)
[2018-04-12] MEDS: PANTOPRAZOLE 40 MG TABLET PO SCH (08:13)
[2018-04-12] MEDS: GABAPENTIN 100 MG CAP PO SCH ×3 (08:14→22:52)
[2018-04-12] MEDS: amLODIPine 10 MG TAB PO SCH (08:14)
[2018-04-12] MEDS: BUDESONIDE 1 MG/2 ML NEBU INHALATION SCH ×2 (08:38→21:14)
--- NOTE | 2018-04-12 11:00 | XR ---
EXAMINATION TYPE: XR chest 1V portable DATE OF EXAM: 04/12/2018 COMPARISON: 04/11/2018 INDICATION: Short of breath TECHNIQUE: Single frontal view of the chest is obtained. FINDINGS: The heart size is normal. The pulmonary vasculature is normal. Minimal atelectasis may be within the lingula. This could be some scarring. IMPRESSION: 1. Minimal lingular atelectasis versus scarring at the cardiac apex.
--- NOTE | 2018-04-12 11:02 | CDI ---
Documentation Clarification Form Date: 04/09/2018 1:07:00 PM From: Danay Parada CCS, CCDS Admit Date: 04/08/2018 3:04:00 PM Patient Name: Hector Ha Visit Number: [id number] Discharge Date: ATTENTION: The Clinical Documentation Specialists (CDI) and [facility] Coding Staff appreciate your assistance in clarifying documentation. Please respond to the clarification below the line at the bottom and electronically sign. The CDI & [facility] Coding staff will review the response and follow-up if needed. Please note: Queries are made part of the Legal Health Record. If you have any questions, please contact the author of this message via ITS. Dr. Danyel Zamarripa: Per the Cardiology consult: "The patient appears to have paroxysmal atrial flutter on and off." Per the Pulmonary consult: "Shortness of breath, likely secondary to atrial fibrillation/flutter with increased with the atrial fibrillation/flutter with a rapid ventricular response." History/Risk Factors: Atrial fibrillation (per pulmonary consult), Hypertension with CKD, PVD, COPD, Hyperlipidemia, Obesity,non smoker, previous left carotid endarterectomy. Clinical Indicators: Presented with SOB from other facility, transferred for VQ scan: low probability for PE. 04/09 Initial EKG: evidence of atrial flutter. Treatment: Albuterol INH, IV Rocephin, IV fl bolus x, IV Azithromycin, IV Solumedrol, NRB. In your professional opinion, can you please clarify the type of Atrial Fibrillation and the type of Atrial Flutter, if known? Atrial Fibrillation: o Chronic/Permanent o Paroxysmal o Persistent o Other, please specify o Unable to determine Atrial Flutter: o Typical o Atypical o Type I o Type II o Other, please specify: o Unable to determine (Last Revision: May 2017) MTDD
[2018-04-12 11:48] LABS: Magnesium 2.3 mg/dL (1.6-2.3); Phosphorus 3.8 mg/dL (2.5-4.5)
[2018-04-12] MEDS ORDERED: METOPROLOL TARTRATE 25 MG TAB PO STA (11:51)
[2018-04-12] MEDS: CLOTRIMAZOLE 1% CREAM 15 GM TUBE TOPICAL SCH ×2 (11:51→23:30)
[2018-04-12 12:02] LABS: Glucose,Whole Blood 177 mg/dL (75-99)
[2018-04-12 12:04] LABS: Glucose,Whole Blood 162 mg/dL (75-99)
--- NOTE | 2018-04-12 12:22 | PN ---
PROGRESS NOTE This patient is admitted with acute bronchitis and pneumonia. Patient had a transient episodes of atrial fibrillation, converted back to the normal sinus rhythm. Patient was started on Cardizem drip. He is currently on the normal sinus rhythm. Patient is being anticoagulated. He has been otherwise doing well. First and second heart sounds are normal. Lungs are reveal bilateral scattered wheezes, Lopressor is increased to 50 mg b.i.d. and we will discontinue the aspirin. We will discontinue the Cardizem drip. MMODL / IJN: [id number] /
[2018-04-12 12:28] LABS: Glucose,Whole Blood 70 mg/dL (75-99)
--- NOTE | 2018-04-12 15:04 | P.PN ---
Subjective Progress Note Date: 04/12/18 Principal diagnosis: Shortness of breath, likely secondary to atrial fibrillation/flutter, tracheobronchitis This is a 77-year-old white male patient of Dr. Bolaños, there was transferred from [facility] on 04/08/2018 with complaints of shortness of breath, patient did have a low-grade fever with a temp of 100F, has been afebrile at this facility, did complain of some coughing, but denied any chest pain, denied any palpitations, denied any swelling in the lower extremities. No nausea, vomiting or diarrhea. X-ray showed no acute cardiopulmonary process, apparently d-dimer was elevated at [place] and VQ scan showed low probability for pulmonary embolus. White blood cell count of 4.6, hemoglobin of 15.4, platelet count of 158, sodium is 133, potassium is 5.4 , chloride is 97, CO2 is 14, B1 is 43 and creatinine is 3.1. Plasma lactic acid was at 6.4. Troponins were elevated at 0.406, 0.708, 0.902, 0.874. Total CK was 1489. In [place] screen was negative, urinalysis showed 4+ glucose, 1+ ketones, negative leuks, negative white cells. Acetone negative. No urinary symptoms. Patient was started on Zosyn initially. The patient seen in follow- up in the intensive care unit, apparently last night he had a episode of agitation, patient was delirious, he had taken his oxygen off, and the probably was acutely hypoxemic. He was given a dose of Haldol, this morning he is awake and alert, oriented 3. In no acute distress, his pulse ox is 95%, on 4 L per nasal cannula, afebrile, blood and urine cultures are still pending. Patient denies any fever or chills. Hemodynamically stable. He is quite a bit more bronchospastic on today's exam. Follow-up chest x-ray today shows some lingular atelectasis, minimal infiltrate at the right lower lobe. CT of chest, abdomen and pelvis showed grossly clear lungs, no pleural effusion or pneumothorax, no bowel obstruction, normal gas pattern, no greater than 1 cm abdominal pelvic lymph nodes. On 04/12/2018 patient seen in follow-up. She is resting comfortably in bed, in no acute distress, currently on 4-5 L of oxygen per nasal cannula his pulse ox is 92%, afebrile, hemodynamically stable, lung sounds are positive for diffuse wheezes, but overall less bronchospastic was dyspneic. Urine and blood culture showed no growth. An abiotic coverage in the form of Zithromax and Rocephin, patient is on nebulized bronchodilators, yesterday he received a dose of IV Lasix, we will give the patient will dose of Lasix today. continue current dose of IV steroids. Patient has been ambulating in the room, tolerating activity well. No complaint of chest pain, has an occasional cough, no sputum production. Objective - Vital Signs Vital signs: Vital Signs Temp 97.9 F 04/12/18 04:00 Pulse 92 04/12/18 12:48 Resp 29 H 04/12/18 07:50 BP 102/59 04/12/18 04:00 Pulse Ox 92 L 04/12/18 04:00 Intake & Output 04/11/18 04/12/18 04/12/18 18:59 06:59 18:59 Intake Total 1400 704.167 200 Output Total 1750 1200 200 Balance -350 -495.833 0 Weight 112 kg Intake: IV 600 600 200 Sodium Chloride 0.9% 1, 600 600 200 000 ml @ 50 mls/hr IV . Q20H KAM Rx#:[id number] Intake, IV Titration 104.167 Amount Diltiazem 125 mg In 104.167 Sodium Chloride 0.9% 100 ml @ 10 MG/HR 10 mls/hr IV .[id number] KAM Rx#: [id number] Oral 800 Output: Urine 1750 1200 200 Other: Voiding Method Urinal Urinal Urinal - Exam GENERAL EXAM: Alert, active, 77-year-old white male patient on 4 L per nasal cannula comfortable in no apparent distress. HEAD: Normocephalic/atraumatic. EYES: Normal reaction of pupils, equal size. Conjunctiva pink, sclera white. NOSE: Clear with pink turbinates. THROAT: No erythema or exudates. NECK: No masses, no JVD, no thyroid enlargement, no adenopathy. CHEST: No chest wall deformity. Symmetrical expansion. LUNGS: Equal air entry with diffuse wheezes CVS: Regular rate and rhythm, normal S1 and S2, no gallops, no murmurs, no rubs ABDOMEN: Soft, nontender. No hepatosplenomegaly, normal bowel sounds, no guarding or rigidity. EXTREMITIES: No clubbing, no edema, no cyanosis, 2+ pulses and upper and lower extremities. MUSCULOSKELETAL: Muscle strength and tone normal. SPINE: No scoliosis or deformity SKIN: No rashes CENTRAL NERVOUS SYSTEM: Alert and oriented -3. No focal deficits, tone is normal in all 4 extremities. PSYCHIATRIC: Alert and oriented -3. Appropriate affect. Intact judgment and insight. - Labs CBC & Chem 7: 04/12/18 04:35 04/12/18 04:35 Labs: Abnormal Lab Results - Last 24 Hours (Table) 04/11/18 04/11/18 04/12/18 Range/Units 17:11 20:48 04:35 WBC 12.2 H (3.8-10.6) k/uL Neutrophils # 11.1 H (1.3-7.7) k/uL Lymphocytes # 0.4 L (1.0-4.8) k/uL BUN (9-20) mg/dL Creatinine (0.66-1.25) mg/dL Glucose (74-99) mg/dL POC Glucose (mg/dL) 116 H 139 H (75-99) mg/dL Calcium (8.4-10.2) mg/dL 04/12/18 04/12/18 04/12/18 Range/Units 04:35 06:51 08:58 WBC (3.8-10.6) k/uL Neutrophils # (1.3-7.7) k/uL Lymphocytes # (1.0-4.8) k/uL BUN 45 H (9-20) mg/dL Creatinine 1.73 H (0.66-1.25) mg/dL Glucose 63 L (74-99) mg/dL POC Glucose (mg/dL) 70 L 177 H (75-99) mg/dL Calcium 7.7 L (8.4-10.2) mg/dL 04/12/18 Range/Units 12:03 WBC (3.8-10.6) k/uL Neutrophils # (1.3-7.7) k/uL Lymphocytes # (1.0-4.8) k/uL BUN (9-20) mg/dL Creatinine (0.66-1.25) mg/dL Glucose (74-99) mg/dL POC Glucose (mg/dL) 162 H (75-99) mg/dL Calcium (8.4-10.2) mg/dL Microbiology - Last 24 Hours (Table) 04/08/18 13:50 Blood Culture - Preliminary Blood No Growth after 72 hours Assessment and Plan Plan: Assessment: #1. Acute hypoxemic respiratory failure related to atrial fibrillation/flutter with rapid ventricular response, and tracheobronchitis. Chest x-ray showed no acute pulmonary processm, VQ scan showed low probability for PE #2. Lactic acidosis, possibly related to sepsis, and so far CT chest/abdomen and pelvis was negative, cultures are negative #3. Elevated troponins #4. A. fib with RVR #5. Acute kidney injury #6. Episode of acute agitation, delirium, likely related to hypoxemia, improved #6. Chronic kidney disease stage III #7. History of carotid artery stenosis #8. GERD, psoriasis, diabetes mellitus type 2 Plan: Continue the same medical treatment, Zithromax and Rocephin, IV steroids, nebulized bronchodilators. Patient is slowly improving, less bronchospastic and short of breath, we'll give the patient additional dose of IV Lasix today. Patient had another episode of A. fib RVR last night, currently on Cardizem drip , currently his rate is much better controlled, will increase patient's dose of oral metoprolol, cardiology is following. Continue with the oral anticoagulation. Complaints of chest pain, no worsening shortness of breath. Increase activity as tolerated, from pulmonary perspective patient can transfer out of the intensive care unit today to selective care. I performed a history & physical examination of the patient and discussed their management with my nurse practitioner, Crystal Matos. I reviewed the nurse practitioner's note and agree with the documented findings and plan of care. Lung sounds are positive for diffuse wheezes throughout the lung arnold. The findings and the impression was discussed with the patient. I attest to the documentation by the nurse practitioner. Time with Patient: Less than 30
--- NOTE | 2018-04-12 16:34 | PN ---
PROGRESS NOTE DATE OF SERVICE: 04/12/2018 This 77-year-old gentleman who was admitted with COPD, acute exacerbation, also had atrial fibrillation. Patient also had change in mental status, acute hypoxic metabolic encephalopathy, possibly secondary to COPD, acute exacerbation. Patient is on steroids and bronchodilators. Patient is feeling slightly better; still short of breath. Bilateral rhonchi noted. Past medical history reviewed. REVIEW OF SYSTEMS: CARDIOVASCULAR SYSTEM: As mentioned earlier. RESPIRATORY SYSTEM: As mentioned earlier. GI: No nausea, vomiting. : No dysuria or retention. NERVOUS SYSTEM: No numbness, weakness. CURRENT MEDICATIONS: Reviewed. They include: 1. Tylenol 500 mg q.6 p.r.n. 2. [place] 5 mg. 3. DuoNeb q.i.d. and p.r.n. 4. Xanax 0.25 t.i.d. 5. Norvasc 10 mg daily. 6. Eliquis 5 mg p.o. b.i.d. 7. Lipitor 40 mg at bedtime. 8. Zithromax 500 mg daily. 9. Pulmicort 1 mg daily. 10.Rocephin 1 gram IV daily. 11.Lotrimin. 12.Cardizem drip. 13.Tambocor. 14.Lasix. 15.Neurontin. 16.Haldol. 17.NovoLog scale. 18.NovoLog Mix 70/30, 45 and 35 units. 19.Solu-Medrol 60 IV q.6. 20.Lopressor 50 mg p.o. b.i.d. 21.Protonix. 22.Restoril. 23.Tobrex. PHYSICAL EXAMINATION: Patient is alert, oriented x2. Pulse is 88, blood pressure 102/59, respiration 29, temperature 97.9, pulse ox 92% on 4 L. HEENT: Conjunctivae normal. NECK: No jugular venous distention. CARDIOVASCULAR SYSTEM: S1, S2 muffled. RESPIRATORY SYSTEM: Breath sounds diminished at the bases. Bilateral scattered rhonchi and expiratory wheezing also present. Abdomen is soft, nontender. LEGS: No edema. No swelling. NERVOUS SYSTEM: No focal deficit. LABS: WBC 12.2, hemoglobin 14.9. Sodium 137, potassium 4.2, creatinine 1.73 and calcium 7.7. ASSESSMENT: 1. Chronic obstructive pulmonary disease, acute exacerbation, possibly with acute purulent tracheobronchitis with acute hypoxic respiratory failure. No evidence of pulmonary embolus. 2. Atrial fibrillation with fast ventricular rate, present on admission. 3. Change in mental status, hypoxic metabolic encephalopathy, possibly secondary to hypoxia and chronic obstructive pulmonary disease. 4. Diabetes mellitus, type 2. 5. Acute on chronic kidney disease. 6. Elevated lactic acid, possibly sepsis. 7. No evidence of ischemic colitis. 8. Coronary artery disease, stage III baseline. 9. Hypertension. 10.History of carotid artery stenosis. 11.History of gastroesophageal reflux disease. 12.History of psoriasis. 13.Chronic kidney disease, stage III. 14.Diabetes mellitus, type 2, uncontrolled. 15.Hypocalcemia. 16.Hyponatremia. 17.Hyperkalemia, present on admission. 18.FULL CODE. RECOMMENDATIONS AND DISCUSSION: I recommend to continue current medications, continue with the monitoring, symptomatic treatment. We will monitor the patient closely. Continue the bronchodilators. Closely follow with Dr. Velázquez. Cardiology has seen the patient also. I would recommend steroids and medications as well. Follow closely with Cardiology. Guarded prognosis because of the multiple complex medical issues. Repeat chest x-ray noted. Further recommendations to follow. MMODL / IJN: [id number] /
[2018-04-12] MEDS: INSULN ASP PRT/INSULIN ASPART 100 UNIT/ML 10 ML VIAL SQ SCH ×2 (17:34→17:58)
[2018-04-12 17:45] LABS: Glucose,Whole Blood 160 mg/dL (75-99)
[2018-04-12] MEDS: PIPERACILLIN-TAZOBACTAM 3.375 GM in SODIUM CHLORIDE 0.9% 100 ML IVPB SCH (18:43)
[2018-04-12 21:44] LABS: Glucose,Whole Blood 258 mg/dL (75-99)
[2018-04-12] MEDS: METOPROLOL TARTRATE 50 MG TAB PO SCH (22:52)
[2018-04-12] MEDS: ATORVASTATIN 40 MG TAB PO SCH (22:52)
[2018-04-13] MEDS: IPRATROPIUM-ALBUTEROL 3 ML NEB INHALATION SCH ×6 (03:35→23:11)
[2018-04-13] MEDS: TOBRAMYCIN 0.3% OPHTH DROPS 5 ML BTL BOTH EYES SCH ×4 (05:54→18:19)
[2018-04-13] MEDS: methylPREDNISolone SOD SUCCI 125 MG/2 ML VIAL IV SCH ×2 (05:55→06:17)
--- NOTE | 2018-04-13 06:01 | PN ---
PROGRESS NOTE DATE OF SERVICE: 04/12/2018 REASON FOR FOLLOWUP: Possible pneumonia. INTERVAL HISTORY: The patient is afebrile. The patient is breathing comfortably. Patient denies significant chest pain. Occasional cough. No abdominal pain, nausea, vomiting. No diarrhea. PHYSICAL EXAMINATION: Blood pressure 160/57, pulse of 80, temperature is 97.6, he is the patient is ( ). GENERAL DESCRIPTION: Patient is an elderly male up in the chair in no distress. RESPIRATORY SYSTEM: Unlabored breathing with decreased breath sounds at the bases. No wheeze. HEART: S1, S2. Regular rate and rhythm. ABDOMEN: Soft. LABS: Hemoglobin is 14.8, white count 12.2, BUN of 45, creatinine 1.7. DIAGNOSTIC IMPRESSION AND PLAN: Patient admitted to the hospital with fever with initial concern for possible abdominal source, possible pneumonitis. CT abdomen was negative. The patient continues to respond to Rocephin. Continue oxygen therapy, short course of oral antibiotics. Continue supportive care. MMODL / IJN: [id number] /
[2018-04-13 06:30] LABS: Glucose,Whole Blood 58 mg/dL (75-99)
[2018-04-13 06:46] LABS: Glucose,Whole Blood 74 mg/dL (75-99)
[2018-04-13 07:08] LABS: Basophils % (A) 0 %; Eosinophils % (A) 0 %; HCT 48.6 % (39.0-53.0); HGB 15.2 gm/dL (13.0-17.5); Lymphocytes # (A) 0.4 k/uL (1.0-4.8); Lymphocytes % (A) 3 %; MCH 29.3 pg (25.0-35.0); MCHC 31.2 g/dL (31.0-37.0); MCV 93.9 fL (80.0-100.0); Mean Platelet Volume 7.2; Monocytes # (A) 0.4 k/uL (0-1.0); Monocytes % (A) 4 %; Neutrophils # (A) 9.4 k/uL (1.3-7.7); Neutrophils % (A) 91 %; Platelet Count 191 k/uL (150-450); RBC 5.17 m/uL (4.30-5.90); RDW 13.9 % (11.5-15.5); WBC 10.3 k/uL (3.8-10.6)
[2018-04-13 07:25] LABS: Calcium 7.7 mg/dL (8.4-10.2); Potassium 4.6 mmol/L (3.5-5.1)
[2018-04-13] MEDS: BUDESONIDE 1 MG/2 ML NEBU INHALATION SCH ×2 (07:56→20:44)
[2018-04-13] MEDS: METOPROLOL TARTRATE 50 MG TAB PO SCH ×2 (09:06→22:04)
[2018-04-13] MEDS: FUROSEMIDE 20 MG TAB PO SCH (09:06)
[2018-04-13] MEDS: APIXABAN 5 MG TAB PO SCH ×2 (09:06→22:05)
[2018-04-13] MEDS: amLODIPine 10 MG TAB PO SCH (09:06)
[2018-04-13] MEDS: GABAPENTIN 100 MG CAP PO SCH ×3 (09:06→22:05)
[2018-04-13] MEDS: FLECAINIDE 50 MG TAB PO SCH ×2 (09:06→22:05)
[2018-04-13] MEDS: PANTOPRAZOLE 40 MG TABLET PO SCH (09:06)
[2018-04-13] MEDS: CLOTRIMAZOLE 1% CREAM 15 GM TUBE TOPICAL SCH (09:07)
[2018-04-13] MEDS: AZITHROMYCIN 500 MG TAB PO SCH (09:07)
[2018-04-13 09:35] LABS: Glucose,Whole Blood 231 mg/dL (75-99)
[2018-04-13] MEDS: INSULN ASP PRT/INSULIN ASPART 100 UNIT/ML 10 ML VIAL SQ SCH ×2 (10:22→18:18)
[2018-04-13] MEDS: INSULIN ASPART (NovoLOG) 100 UNIT/ML VIAL SQ SCH ×4 (10:46→22:05)
[2018-04-13 11:59] LABS: Glucose,Whole Blood 272 mg/dL (75-99)
--- NOTE | 2018-04-13 13:49 | P.PN ---
Subjective Patient is seen and examined sitting up in bed sleeping in no acute distress. He denies symptoms of chest discomfort, shortness of breath, dizziness or palpitations. He has converted to sinus mechanism. Chest x-ray obtained yesterday reveals minimal atelectasis. Laboratory data reviewed, WBC 10.3, hemoglobin 15.2, platelets 191, sodium 140, potassium 4.6, creatinine 1.66. Blood pressure 156/74 heart rate 70 afebrile maintaining oxygen saturation on nasal cannula Currently maintained on amlodipine 10 mg daily, and Eliquis 5 mg twice a day, atorvastatin 40 mg daily, flecainide 50 mg twice a day, Lasix 60 mg daily, Lopressor 50 mg twice a day. GENERAL: Well-appearing, well-nourished and in no acute distress. NECK: Supple without JVD or thyromegaly. LUNGS: Wheezes noted throughout on expiration, no rales or rhonchi. Respiration equal and unlabored. HEART: Regular rate and rhythm without murmurs, rubs or gallops. S1 and S2 heard. EXTREMITIES: Bilateral lower extremity dominique wraps in place with underlying edema. ASSESSMENT Paroxysmal atrial fibrillation, converted to sinus mechanism. On long-term anticoagulation with Eliquis. Acute hypoxic respiratory failure Lactic acidosis secondary to sepsis Acute kidney injury Diabetes mellitus Hypertension Peripheral vascular disease s/p carotid endartectomy History of coronary artery disease with 40-50% lesion in mid LAD 2006 PLAN Continue current medical regimen. Ongoing medical management of infectious process. Follow up upon discharge with Dr. Joseph. Nurse Practitioner note has been reviewed, I agree with a documented findings and plan of care. Patient was seen and examined. Objective - Vital Signs Vital signs: Vital Signs Temp 98 F 04/13/18 12:00 Pulse 82 04/13/18 12:21 Resp 20 04/13/18 12:00 BP 156/74 04/13/18 12:00 Pulse Ox 94 L 04/13/18 12:00 Intake & Output 04/12/18 04/13/18 04/13/18 18:59 06:59 18:59 Intake Total 600 450 Output Total 520 2115 100 Balance 80 -2115 350 Weight 114.7 kg Intake: IV 600 250 Sodium Chloride 0.9% 1, 600 250 000 ml @ 50 mls/hr IV . Q20H [facility] Rx#:[id number] Intake, IV Titration 200 Amount cefTRIAXone 1 gm In 200 Sodium Chloride 0.9% 50 ml @ 100 mls/hr IVPB Q24HR [facility] Rx#:[id number] Output: Urine 520 2115 100 Other: Voiding Method Urinal Urinal Urinal # Voids 1 - Labs CBC & Chem 7: 04/13/18 06:02 04/13/18 06:02 Labs: Abnormal Lab Results - Last 24 Hours (Table) 04/12/18 04/12/18 04/13/18 Range/Units 17:12 21:31 06:02 Neutrophils # 9.4 H (1.3-7.7) k/uL Lymphocytes # 0.4 L (1.0-4.8) k/uL BUN (9-20) mg/dL Creatinine (0.66-1.25) mg/dL Glucose (74-99) mg/dL POC Glucose (mg/dL) 160 H 258 H (75-99) mg/dL Calcium (8.4-10.2) mg/dL 04/13/18 04/13/18 04/13/18 Range/Units 06:02 06:26 06:44 Neutrophils # (1.3-7.7) k/uL Lymphocytes # (1.0-4.8) k/uL BUN 46 H (9-20) mg/dL Creatinine 1.66 H (0.66-1.25) mg/dL Glucose 59 L (74-99) mg/dL POC Glucose (mg/dL) 58 L 74 L (75-99) mg/dL Calcium 7.7 L (8.4-10.2) mg/dL 04/13/18 04/13/18 Range/Units 09:33 11:47 Neutrophils # (1.3-7.7) k/uL Lymphocytes # (1.0-4.8) k/uL BUN (9-20) mg/dL Creatinine (0.66-1.25) mg/dL Glucose (74-99) mg/dL POC Glucose (mg/dL) 231 H 272 H (75-99) mg/dL Calcium (8.4-10.2) mg/dL Microbiology - Last 24 Hours (Table) 04/08/18 13:50 Blood Culture - Preliminary Blood No Growth after 96 hours
--- NOTE | 2018-04-13 15:10 | P.PN ---
Subjective Progress Note Date: 04/13/18 Principal diagnosis: Dyspnea secondary to atrial fibrillation/flutter and acute purulent tracheobronchitis. This is a 77-year-old white male patient of Dr. Bolaños, there was transferred from [facility] on 04/08/2018 with complaints of shortness of breath, patient did have a low-grade fever with a temp of 100F, has been afebrile at this facility, did complain of some coughing, but denied any chest pain, denied any palpitations, denied any swelling in the lower extremities. No nausea, vomiting or diarrhea. X-ray showed no acute cardiopulmonary process, apparently d-dimer was elevated at [place] and VQ scan showed low probability for pulmonary embolus. White blood cell count of 4.6, hemoglobin of 15.4, platelet count of 158, sodium is 133, potassium is 5.4 , chloride is 97, CO2 is 14, B1 is 43 and creatinine is 3.1. Plasma lactic acid was at 6.4. Troponins were elevated at 0.406, 0.708, 0.902, 0.874. Total CK was 1489. In [place] screen was negative, urinalysis showed 4+ glucose, 1+ ketones, negative leuks, negative white cells. Acetone negative. No urinary symptoms. Patient was started on Zosyn initially. The patient seen in follow- up in the intensive care unit, apparently last night he had a episode of agitation, patient was delirious, he had taken his oxygen off, and the probably was acutely hypoxemic. He was given a dose of Haldol, this morning he is awake and alert, oriented 3. In no acute distress, his pulse ox is 95%, on 4 L per nasal cannula, afebrile, blood and urine cultures are still pending. Patient denies any fever or chills. Hemodynamically stable. He is quite a bit more bronchospastic on today's exam. Follow-up chest x-ray today shows some lingular atelectasis, minimal infiltrate at the right lower lobe. CT of chest, abdomen and pelvis showed grossly clear lungs, no pleural effusion or pneumothorax, no bowel obstruction, normal gas pattern, no greater than 1 cm abdominal pelvic lymph nodes. On 04/12/2018 patient seen in follow-up. She is resting comfortably in bed, in no acute distress, currently on 4-5 L of oxygen per nasal cannula his pulse ox is 92%, afebrile, hemodynamically stable, lung sounds are positive for diffuse wheezes, but overall less bronchospastic was dyspneic. Urine and blood culture showed no growth. An abiotic coverage in the form of Zithromax and Rocephin, patient is on nebulized bronchodilators, yesterday he received a dose of IV Lasix, we will give the patient will dose of Lasix today. continue current dose of IV steroids. Patient has been ambulating in the room, tolerating activity well. No complaint of chest pain, has an occasional cough, no sputum production. The patient is seen today for rate 2017 in follow-up on the selective care unit. He remains awake and alert in no acute distress. He is oriented 3 currently. He is maintaining good O2 saturations in the low 90s on 6 L high flow nasal cannula. He's been afebrile. Hemodynamically stable. Blood culture reveals no growth. Urine culture reveals no growth. White count 10.3. Hemoglobin 15.2. Creatinine 1.66. Continue DuoNeb inhalations, IV Solu- Medrol and empiric antibiotics. Currently in sinus rhythm. Anticoagulated with Eliquis. Objective - Vital Signs Vital signs: Vital Signs Temp 98 F 04/13/18 12:00 Pulse 82 04/13/18 12:21 Resp 20 04/13/18 12:00 BP 156/74 04/13/18 12:00 Pulse Ox 94 L 04/13/18 12:00 Intake & Output 04/12/18 04/13/18 04/13/18 18:59 06:59 18:59 Intake Total 600 1170 Output Total 520 2115 100 Balance 80 -2115 1070 Weight 114.7 kg Intake: IV 600 250 Sodium Chloride 0.9% 1, 600 250 000 ml @ 50 mls/hr IV . Q20H [facility] Rx#:[id number] Intake, IV Titration 200 Amount cefTRIAXone 1 gm In 200 Sodium Chloride 0.9% 50 ml @ 100 mls/hr IVPB Q24HR [facility] Rx#:[id number] Oral 720 Output: Urine 520 2115 100 Other: Voiding Method Urinal Urinal Urinal # Voids 1 - Exam GENERAL EXAM: Alert, active, 77-year-old white male patient on 6 L per nasal cannula comfortable in no apparent distress. HEAD: Normocephalic/atraumatic. EYES: Normal reaction of pupils, equal size. Conjunctiva pink, sclera white. NOSE: Clear with pink turbinates. THROAT: No erythema or exudates. NECK: No masses, no JVD, no thyroid enlargement, no adenopathy. CHEST: No chest wall deformity. Symmetrical expansion. LUNGS: Equal air entry with diffuse wheezes CVS: Regular rate and rhythm, normal S1 and S2, no gallops, no murmurs, no rubs ABDOMEN: Soft, nontender. No hepatosplenomegaly, normal bowel sounds, no guarding or rigidity. EXTREMITIES: No clubbing, no edema, no cyanosis, 2+ pulses and upper and lower extremities. MUSCULOSKELETAL: Muscle strength and tone normal. SPINE: No scoliosis or deformity SKIN: No rashes CENTRAL NERVOUS SYSTEM: Alert and oriented -3. No focal deficits, tone is normal in all 4 extremities. PSYCHIATRIC: Alert and oriented -3. Appropriate affect. Intact judgment and insight. - Labs CBC & Chem 7: 04/13/18 06:02 04/13/18 06:02 Labs: Abnormal Lab Results - Last 24 Hours (Table) 04/12/18 04/12/18 04/13/18 Range/Units 17:12 21:31 06:02 Neutrophils # 9.4 H (1.3-7.7) k/uL Lymphocytes # 0.4 L (1.0-4.8) k/uL BUN (9-20) mg/dL Creatinine (0.66-1.25) mg/dL Glucose (74-99) mg/dL POC Glucose (mg/dL) 160 H 258 H (75-99) mg/dL Calcium (8.4-10.2) mg/dL 04/13/18 04/13/18 04/13/18 Range/Units 06:02 06:26 06:44 Neutrophils # (1.3-7.7) k/uL Lymphocytes # (1.0-4.8) k/uL BUN 46 H (9-20) mg/dL Creatinine 1.66 H (0.66-1.25) mg/dL Glucose 59 L (74-99) mg/dL POC Glucose (mg/dL) 58 L 74 L (75-99) mg/dL Calcium 7.7 L (8.4-10.2) mg/dL 04/13/18 04/13/18 Range/Units 09:33 11:47 Neutrophils # (1.3-7.7) k/uL Lymphocytes # (1.0-4.8) k/uL BUN (9-20) mg/dL Creatinine (0.66-1.25) mg/dL Glucose (74-99) mg/dL POC Glucose (mg/dL) 231 H 272 H (75-99) mg/dL Calcium (8.4-10.2) mg/dL Microbiology - Last 24 Hours (Table) 04/08/18 13:50 Blood Culture - Preliminary Blood No Growth after 96 hours Assessment and Plan Assessment: Assessment: #1. Acute hypoxemic respiratory failure related to atrial fibrillation/flutter with rapid ventricular response, currently in normal sinus rhythm. Chest x-ray showed no acute pulmonary processm, VQ scan showed low probability for PE #2. Lactic acidosis, possibly related to sepsis, and so far CT chest/abdomen and pelvis was negative, cultures are negative #3. Elevated troponins #4. A. fib with RVR #5. Acute kidney injury #6. Episode of acute agitation, delirium, likely related to hypoxemia, improved #6. Chronic kidney disease stage III #7. History of carotid artery stenosis #8. GERD, psoriasis, diabetes mellitus type 2 Plan: The patient was seen and evaluated by Dr. Velázquez. We'll continue with the current treatment plan. We will discontinue the IV Solu-Medrol and initiated prednisone taper. Increase his activity as tolerated. We'll continue to follow make further recommendations based on his clinical status. I, the cosigning physician, performed a history & physical examination of the patient. Lungs sounds with few scattered rhonchi, end expiratory wheeze, diminished. Maintaining good O2 saturations in the 90s on 6 L high flow nasal cannula. I discussed the assessment and plan of care with my nurse practitioner , Judi Sanchez. I attest to the above note as dictated by her.
[2018-04-13 16:48] LABS: Glucose,Whole Blood 204 mg/dL (75-99)
--- NOTE | 2018-04-13 18:50 | PN ---
PROGRESS NOTE DATE OF SERVICE: 04/13/2018 This is a 77-year-old gentleman who was admitted with COPD exacerbation and as well as atrial fibrillation. Also, mildly confused last night. No chest pain. No palpitations. No fever. EXAM: Alert and oriented x3. Pulse 70, blood pressure ntd, temperature 98 degrees, pulse ox 94% on 6 L. HEENT: Conjunctivae normal. Oral mucosa moist. NECK: No jugular venous distention. No lymph node enlargement. CARDIOVASCULAR: S1, S2. RESPIRATORY: Diminished breath sounds at the bases. A few scattered rhonchi. ABDOMEN: Soft, nontender. NERVOUS SYSTEM: No focal deficits. LABS: At this time WBC 10.2, hemoglobin 15.2, creatinine is 1.66. ASSESSMENT: 1. Chronic obstructive pulmonary disease with reactive bronchospasm acute exacerbation with acute purulent tracheobronchitis with acute hypoxic respiratory failure. No evidence of pulmonary embolism. 2. Atrial fibrillation with fast ventricular rate present on admission. 3. Change in mental status. Hypoxic metabolic encephalopathy, possibly secondary to hypoxia and chronic obstructive pulmonary disease. 4. Diabetes mellitus type 2. 5. Acute on chronic kidney disease. 6. Elevated lactic acid, possible sepsis. 7. No evidence of ischemic colitis. 8. Coronary artery disease stage III baseline. 9. Hypertension. 10.History of coronary artery disease, stent. 11.Carotid artery stenosis. 12.History of gastroesophageal reflux disease. 13.History of psoriasis. 14.Chronic kidney disease stage III. 15.Diabetes mellitus type 2, uncontrolled. 16.Hypocalcemia. 17.Hyponatremia. 18.Hyperkalemia present on admission. 19.FULL CODE. RECOMMENDATIONS AND DISCUSSION: Recommend to continue current medication, continue symptomatic treatment. Otherwise, continue with tapering steroids. Continue the bronchodilators. Closely follow with Dr. Velázquez. Continue antibiotics. Further recommendations to follow. MMODL / IJN: [id number] / NADINE
[2018-04-13 21:53] LABS: Glucose,Whole Blood 147 mg/dL (75-99)
[2018-04-13] MEDS: ATORVASTATIN 40 MG TAB PO SCH (22:05)
[2018-04-14] MEDS: IPRATROPIUM-ALBUTEROL 3 ML NEB INHALATION SCH ×5 (03:16→20:36)
--- NOTE | 2018-04-14 05:26 | PN ---
PROGRESS NOTE DATE OF SERVICE: 04/13/2018. REASON FOR FOLLOWUP: Pneumonia. INTERVAL HISTORY: The patient is currently afebrile. The patient has been breathing more comfortably. Denies having any chest pain. Occasional cough which is dry in nature. No nausea, no vomiting. No abdominal pain. No diarrhea. PHYSICAL EXAMINATION: Blood pressure 159/74 with a pulse of 88. Temperature is 97.8. She is 93% on 5 L nasal cannula. General description is an elderly male up in the bed in no distress. Respiratory system: Unlabored breathing. Clear to auscultation anteriorly. Heart S1, S2. Regular rate and rhythm. ABDOMEN: Soft, no tenderness. LABS: Hemoglobin 15.2, white count 10.3, BUN of 46, creatinine 1.36. DIAGNOSTIC IMPRESSION AND PLAN: Patient admitted to the hospital with with concern for possible abdominal source. with concern for possible pneumonia, community acquired. The patient responded to the Rocephin and Zithromax the patient is currently on. With a plan to finish therapy with oral Ceftin. Continue supportive care. MMODL / IJN: [id number] /
[2018-04-14 06:06] LABS: Glucose,Whole Blood 80 mg/dL (75-99)
[2018-04-14 06:28] LABS: Basophils % (A) 0 %; Eosinophils # (A) 0.1 k/uL (0-0.7); Eosinophils % (A) 0 %; HCT 49.5 % (39.0-53.0); HGB 16.1 gm/dL (13.0-17.5); Lymphocytes # (A) 0.5 k/uL (1.0-4.8); Lymphocytes % (A) 4 %; MCH 30.1 pg (25.0-35.0); MCHC 32.6 g/dL (31.0-37.0); MCV 92.6 fL (80.0-100.0); Mean Platelet Volume 6.5; Monocytes # (A) 1.2 k/uL (0-1.0); Monocytes % (A) 9 %; Neutrophils # (A) 11.1 k/uL (1.3-7.7); Neutrophils % (A) 85 %; Platelet Count 200 k/uL (150-450); RBC 5.34 m/uL (4.30-5.90); RDW 13.7 % (11.5-15.5); WBC 13.1 k/uL (3.8-10.6)
[2018-04-14 06:48] LABS: Calcium 7.6 mg/dL (8.4-10.2); Potassium 4.3 mmol/L (3.5-5.1)
[2018-04-14] MEDS: TOBRAMYCIN 0.3% OPHTH DROPS 5 ML BTL BOTH EYES SCH ×5 (06:51→23:52)
[2018-04-14] MEDS: SODIUM CHLORIDE 0.9% 1,000 ML IV SCH (06:51)
[2018-04-14] MEDS: CLOTRIMAZOLE 1% CREAM 15 GM TUBE TOPICAL SCH ×3 (06:51→21:41)
[2018-04-14] MEDS: PANTOPRAZOLE 40 MG TABLET PO SCH (06:52)
[2018-04-14 08:10] LABS: Glucose,Whole Blood 84 mg/dL (75-99)
[2018-04-14] MEDS: FUROSEMIDE 20 MG TAB PO SCH (08:15)
[2018-04-14] MEDS: APIXABAN 5 MG TAB PO SCH ×2 (08:16→21:09)
[2018-04-14] MEDS: GABAPENTIN 100 MG CAP PO SCH ×3 (08:16→21:09)
[2018-04-14] MEDS: AZITHROMYCIN 500 MG TAB PO SCH (08:16)
[2018-04-14] MEDS: FLECAINIDE 50 MG TAB PO SCH ×2 (08:16→21:10)
[2018-04-14] MEDS: METOPROLOL TARTRATE 50 MG TAB PO SCH ×2 (08:16→21:09)
[2018-04-14] MEDS: predniSONE 20 MG TAB PO SCH (08:16)
[2018-04-14] MEDS: amLODIPine 10 MG TAB PO SCH (08:16)
[2018-04-14] MEDS: INSULN ASP PRT/INSULIN ASPART 100 UNIT/ML 10 ML VIAL SQ SCH ×2 (08:25→21:41)
[2018-04-14] MEDS: INSULIN ASPART (NovoLOG) 100 UNIT/ML VIAL SQ SCH ×4 (08:25→21:10)
[2018-04-14] MEDS: BUDESONIDE 1 MG/2 ML NEBU INHALATION SCH ×2 (08:55→20:36)
[2018-04-14 11:08] LABS: Glucose,Whole Blood 159 mg/dL (75-99)
--- NOTE | 2018-04-14 15:45 | PN ---
PROGRESS NOTE This patient was admitted with acute bronchitis. Patient had intermittent episodes of atrial fibrillation. Patient's monitor strips this morning show a lot of artifact but the patient was in normal sinus rhythm yesterday. No atrial fibrillation with a rapid ventricular response is noted. Heart rate is 96 per minute. First and second heart sounds are normal. Lung examination reveal bilateral scattered wheezes. We will continue the current medications. MMODL / IJN: [id number] /
[2018-04-14 16:36] LABS: Glucose,Whole Blood 92 mg/dL (75-99)
--- NOTE | 2018-04-14 19:21 | PN ---
PROGRESS NOTE DATE OF SERVICE: 04/14/2018 This 77-year-old gentleman who was admitted with COPD acute exacerbation is being closely monitored. No chest pain. No palpitations. No fever. The patient is able to ambulate at this time. EXAM: Alert and oriented x3. Pulse is 99. Blood pressure 160/83, respiration 20, temperature 97.2, pulse ox 97% on 3 L. HEENT: Conjunctivae normal. NECK: No jugular venous distention. CARDIOVASCULAR: S1, S2 muffled. RESPIRATORY: Breath sounds diminished in the bases. A few scattered rhonchi and crackles. ABDOMEN: Soft, nontender. LEGS: No edema, no swelling. LABS: WBC 13.2, hemoglobin 16.1, creatinine is 1.49. ASSESSMENT: 1. Chronic obstructive pulmonary disease exacerbation with acute bronchospasm with acute exacerbation, acute purulent tracheobronchitis with acute hypoxic respiratory failure. No evidence of pulmonary embolism, possibly reactive bronchospasm. 2. Atrial fibrillation with fast ventricular rate present on admission. 3. Change in mental status, hypoxia, metabolic encephalopathy, possibly secondary to hypoxia and chronic obstructive pulmonary disease and reactive bronchospasm. 4. Diabetes mellitus type 2. 5. Acute on chronic kidney disease. 6. Elevated lactic acid, possible sepsis. 7. No evidence ischemic colitis. 8. Hypertension. 9. History of coronary artery disease, stent. 10.Carotid artery stenosis. 11.History of gastroesophageal reflux disease. 12.History of psoriasis. 13.Chronic kidney disease, stage III. 14.Diabetes mellitus type 2, uncontrolled. 15.Hypocalcemia. 16.Hyponatremia. 17.Hyperkalemia, present on admission. 18.FULL CODE. RECOMMENDATIONS AND DISCUSSION: I recommend to continue current management, continue symptomatic treatment. Steroids have been tapered. Otherwise, I would recommend bronchodilators and if okay with Dr. Velázquez, the patient might be able to be discharged in 24-48 hours. Guarded prognosis. Further recommendations to follow. MMODL / IJN: [id number] /
[2018-04-14 21:02] LABS: Glucose,Whole Blood 155 mg/dL (75-99)
[2018-04-14] MEDS: ATORVASTATIN 40 MG TAB PO SCH (21:09)
[2018-04-15] MEDS: IPRATROPIUM-ALBUTEROL 3 ML NEB INHALATION SCH ×5 (01:49→15:58)
[2018-04-15] MEDS: SODIUM CHLORIDE 0.9% 1,000 ML IV SCH (05:07)
--- NOTE | 2018-04-15 06:03 | PN ---
PROGRESS NOTE DATE OF SERVICE: 04/14/2018. REASON FOR FOLLOWUP: Pneumonia. INTERVAL HISTORY: The patient is afebrile. Patient is breathing more comfortably. Denies having any chest pain, shortness of breath. Occasional cough. No nausea, no vomiting. No abdominal pain. No diarrhea. PHYSICAL EXAMINATION: On examination, blood pressure is 160/83 with a pulse of 99, temperature 97.7. He is 97% on 6 L nasal cannula. General description is an elderly male lying in bed in no distress. RESPIRATORY SYSTEM: Unlabored breathing with decreased breath sounds at the bases. No wheeze. HEART: S1, S2. Regular rate and rhythm. ABDOMEN: Soft, no tenderness. LABS: Hemoglobin 16.1, white count slightly elevated at 13.1 today with a BUN of 42, creatinine is 1.49. DIAGNOSTIC IMPRESSION AND PLAN: Patient admitted to the hospital initially with sepsis with concern for possible abdominal source. CT of abdomen and pelvis was negative with question of possible pneumonia, more likely community acquired. The patient currently did well on Rocephin and Zithromax with a plan to finish therapy with oral Ceftin. White count slightly elevated. We will monitor closely as no evidence of any clinical worsening of his condition. Continue supportive care. MMODL / IJN: [id number] /
[2018-04-15 06:14] LABS: Glucose,Whole Blood 129 mg/dL (75-99)
[2018-04-15] MEDS: INSULIN ASPART (NovoLOG) 100 UNIT/ML VIAL SQ SCH ×2 (06:15→12:41)
[2018-04-15] MEDS: TOBRAMYCIN 0.3% OPHTH DROPS 5 ML BTL BOTH EYES SCH ×2 (06:42→10:03)
[2018-04-15] MEDS: PANTOPRAZOLE 40 MG TABLET PO SCH (06:42)
[2018-04-15] MEDS: BUDESONIDE 1 MG/2 ML NEBU INHALATION SCH (07:44)
[2018-04-15] MEDS: INSULN ASP PRT/INSULIN ASPART 100 UNIT/ML 10 ML VIAL SQ SCH (07:49)
[2018-04-15] MEDS: METOPROLOL TARTRATE 50 MG TAB PO SCH (10:00)
[2018-04-15] MEDS: FUROSEMIDE 20 MG TAB PO SCH (10:00)
[2018-04-15] MEDS: predniSONE 20 MG TAB PO SCH (10:00)
[2018-04-15] MEDS: GABAPENTIN 100 MG CAP PO SCH ×2 (10:01→15:46)
[2018-04-15] MEDS: APIXABAN 5 MG TAB PO SCH (10:01)
[2018-04-15] MEDS: AZITHROMYCIN 500 MG TAB PO SCH (10:01)
[2018-04-15] MEDS: FLECAINIDE 50 MG TAB PO SCH (10:01)
[2018-04-15] MEDS: amLODIPine 10 MG TAB PO SCH (10:01)
[2018-04-15] MEDS: CLOTRIMAZOLE 1% CREAM 15 GM TUBE TOPICAL SCH (10:02)
[2018-04-15 10:18] VITALS: RESP 18; TEMP 96.8
--- NOTE | 2018-04-15 11:22 | P.PN ---
Subjective Progress Note Date: 04/14/18 This is a 77-year-old white male patient of Dr. Bolaños, there was transferred from [facility] on 04/08/2018 with complaints of shortness of breath, patient did have a low-grade fever with a temp of 100F, has been afebrile at this facility, did complain of some coughing, but denied any chest pain, denied any palpitations, denied any swelling in the lower extremities. No nausea, vomiting or diarrhea. X-ray showed no acute cardiopulmonary process, apparently d-dimer was elevated at [place] and VQ scan showed low probability for pulmonary embolus. White blood cell count of 4.6, hemoglobin of 15.4, platelet count of 158, sodium is 133, potassium is 5.4 , chloride is 97, CO2 is 14, B1 is 43 and creatinine is 3.1. Plasma lactic acid was at 6.4. Troponins were elevated at 0.406, 0.708, 0.902, 0.874. Total CK was 1489. In [place] screen was negative, urinalysis showed 4+ glucose, 1+ ketones, negative leuks, negative white cells. Acetone negative. No urinary symptoms. Patient was started on Zosyn initially. The patient seen in follow- up in the intensive care unit, apparently last night he had a episode of agitation, patient was delirious, he had taken his oxygen off, and the probably was acutely hypoxemic. He was given a dose of Haldol, this morning he is awake and alert, oriented 3. In no acute distress, his pulse ox is 95%, on 4 L per nasal cannula, afebrile, blood and urine cultures are still pending. Patient denies any fever or chills. Hemodynamically stable. He is quite a bit more bronchospastic on today's exam. Follow-up chest x-ray today shows some lingular atelectasis, minimal infiltrate at the right lower lobe. CT of chest, abdomen and pelvis showed grossly clear lungs, no pleural effusion or pneumothorax, no bowel obstruction, normal gas pattern, no greater than 1 cm abdominal pelvic lymph nodes. On 04/12/2018 patient seen in follow-up. She is resting comfortably in bed, in no acute distress, currently on 4-5 L of oxygen per nasal cannula his pulse ox is 92%, afebrile, hemodynamically stable, lung sounds are positive for diffuse wheezes, but overall less bronchospastic was dyspneic. Urine and blood culture showed no growth. An abiotic coverage in the form of Zithromax and Rocephin, patient is on nebulized bronchodilators, yesterday he received a dose of IV Lasix, we will give the patient will dose of Lasix today. continue current dose of IV steroids. Patient has been ambulating in the room, tolerating activity well. No complaint of chest pain, has an occasional cough, no sputum production. The patient is seen today for 04/13 2018 in follow-up on the selective care unit. He remains awake and alert in no acute distress. He is oriented 3 currently. He is maintaining good O2 saturations in the low 90s on 6 L high flow nasal cannula. He's been afebrile. Hemodynamically stable. Blood culture reveals no growth. Urine culture reveals no growth. White count 10.3. Hemoglobin 15.2. Creatinine 1.66. Continue DuoNeb inhalations, IV Solu- Medrol and empiric antibiotics. Currently in sinus rhythm. Anticoagulated with Eliquis. On today's evaluation of 04/14/2018 and seeing this patient for a follow-up. Doing well. No new complaints. He got moved out of the intensive care unit yesterday. He is doing very well. His pulse ox is 97% on 67 oxygen nasal cannula. This can be easily weaned down to a lower flow of oxygen. He is afebrile. He is on a prednisone burst taper. He is on bronchodilators around the clock. Creatinine is improving is down to 1.4. No other significant events otherwise. Objective - Vital Signs Vital signs: Vital Signs Temp 97.7 F 04/14/18 15:24 Pulse 99 04/14/18 15:24 Resp 20 04/14/18 15:24 BP 160/83 04/14/18 15:24 Pulse Ox 97 04/14/18 15:24 Intake & Output 04/13/18 04/14/18 04/14/18 18:59 06:59 18:59 Intake Total 1650 1590 Output Total 650 2225 1100 Balance 1000 -2225 490 Weight 115 kg Intake: IV 250 50 Sodium Chloride 0.9% 1, 250 50 000 ml @ 50 mls/hr IV . Q20H [facility] Rx#:[id number] Intake, IV Titration 200 100 Amount cefTRIAXone 1 gm In 200 100 Sodium Chloride 0.9% 50 ml @ 100 mls/hr IVPB Q24HR [facility] Rx#:[id number] Oral 1200 1440 Output: Urine 650 2225 1100 Other: Voiding Method Urinal Urinal Urinal # Voids 1 - Exam GENERAL EXAM: Alert, active, 77-year-old white male patient on 6 L per nasal cannula comfortable in no apparent distress. HEAD: Normocephalic/atraumatic. EYES: Normal reaction of pupils, equal size. Conjunctiva pink, sclera white. NOSE: Clear with pink turbinates. THROAT: No erythema or exudates. NECK: No masses, no JVD, no thyroid enlargement, no adenopathy. CHEST: No chest wall deformity. Symmetrical expansion. LUNGS: Equal air entry with diffuse wheezes CVS: Regular rate and rhythm, normal S1 and S2, no gallops, no murmurs, no rubs ABDOMEN: Soft, nontender. No hepatosplenomegaly, normal bowel sounds, no guarding or rigidity. EXTREMITIES: No clubbing, no edema, no cyanosis, 2+ pulses and upper and lower extremities. MUSCULOSKELETAL: Muscle strength and tone normal. SPINE: No scoliosis or deformity SKIN: No rashes CENTRAL NERVOUS SYSTEM: Alert and oriented -3. No focal deficits, tone is normal in all 4 extremities. PSYCHIATRIC: Alert and oriented -3. Appropriate affect. Intact judgment and insight. - Labs CBC & Chem 7: 04/14/18 05:48 04/14/18 05:48 Labs: Abnormal Lab Results - Last 24 Hours (Table) 04/13/18 04/13/18 04/14/18 Range/Units 16:40 21:40 05:48 WBC 13.1 H (3.8-10.6) k/uL Neutrophils # 11.1 H (1.3-7.7) k/uL Lymphocytes # 0.5 L (1.0-4.8) k/uL Monocytes # 1.2 H (0-1.0) k/uL BUN (9-20) mg/dL Creatinine (0.66-1.25) mg/dL POC Glucose (mg/dL) 204 H 147 H (75-99) mg/dL Calcium (8.4-10.2) mg/dL 04/14/18 04/14/18 Range/Units 05:48 11:01 WBC (3.8-10.6) k/uL Neutrophils # (1.3-7.7) k/uL Lymphocytes # (1.0-4.8) k/uL Monocytes # (0-1.0) k/uL BUN 42 H (9-20) mg/dL Creatinine 1.49 H (0.66-1.25) mg/dL POC Glucose (mg/dL) 159 H (75-99) mg/dL Calcium 7.6 L (8.4-10.2) mg/dL Microbiology - Last 24 Hours (Table) 04/08/18 13:50 Blood Culture - Preliminary Blood No Growth after 120 hours Assessment and Plan Plan: Assessment: A #1. Acute hypoxemic respiratory failure secondary to atrial fibrillation/ flutter with rapid ventricular response, and tracheobronchitis. Chest x-ray showed no acute pulmonary processm, VQ scan showed low probability for PE. The patient went back to normal sinus rhythm. The patient also developed severe bronchospasm wheezing and currently is improving with a combination of bronchodilators and steroids. #2. Lactic acidosis, possibly related to sepsis, and so far CT chest/abdomen and pelvis was negative, cultures are negative, recovered #3. Elevated troponins, nonspecific #4. A. fib with RVR, currently in normal sinus rhythm #5. Acute kidney injury, improving the creatinine is down to 1.4 #6. Episode of acute agitation, delirium, likely related to hypoxemia, improved #6. Chronic kidney disease stage III #7. History of carotid artery stenosis #8. GERD #9 psoriasis #10 diabetes mellitus type 2 Plan The patient continues to improve. Continue same treatment. Prednisone burst taper. Long-term anticoagulation with Eliquis. Continue the same treatment. Encourage activity and mobility. We'll continue to follow.
[2018-04-15 11:53] LABS: Glucose,Whole Blood 126 mg/dL (75-99)
[2018-04-15 14:14] VITALS: BP 149/71
--- NOTE | 2018-04-15 14:31 | PN ---
PROGRESS NOTE DATE OF SERVICE: 04/15/2018 REASON FOR FOLLOWUP: Possible pneumonia. INTERVAL HISTORY: The patient is currently afebrile. The patient is breathing comfortably. Denies having any chest pain or any cough. No abdominal pain, no diarrhea. PHYSICAL EXAMINATION: Blood pressure 139/84 with pulse of 73, temperature 96.8. He is 96% on 4 L nasal cannula. General description is an elderly male, up in the bed in no distress. RESPIRATORY SYSTEM: Unlabored breathing. Decreased breath sounds in the bases, no wheeze. HEART: S1, S2. Regular rate and rhythm. ABDOMEN: Soft, no tenderness. LABS: No new labs have been obtained today. DIAGNOSTIC IMPRESSION AND PLAN: Patient admitted to the hospital with initial concern for possible abdominal abscess. CT abdominal and pelvis did not show any abnormality with concern for possible pneumonia. The patient overall improvement on Rocephin and Zithromax. Finish therapy with a short course of oral Ceftin. Continue supportive care. MMODL / IJN: [id number] /
[2018-04-15 16:00] VITALS: PULSE 76
--- NOTE | 2018-04-15 16:18 | P.PN ---
Subjective Progress Note Date: 04/15/18 Principal diagnosis: Shortness of breath, likely secondary to atrial fibrillation/flutter, tracheobronchitis This is a 77-year-old white male patient of Dr. Bolaños, there was transferred from [facility] on 04/08/2018 with complaints of shortness of breath, patient did have a low-grade fever with a temp of 100F, has been afebrile at this facility, did complain of some coughing, but denied any chest pain, denied any palpitations, denied any swelling in the lower extremities. No nausea, vomiting or diarrhea. X-ray showed no acute cardiopulmonary process, apparently d-dimer was elevated at [place] and VQ scan showed low probability for pulmonary embolus. White blood cell count of 4.6, hemoglobin of 15.4, platelet count of 158, sodium is 133, potassium is 5.4 , chloride is 97, CO2 is 14, B1 is 43 and creatinine is 3.1. Plasma lactic acid was at 6.4. Troponins were elevated at 0.406, 0.708, 0.902, 0.874. Total CK was 1489. In [place] screen was negative, urinalysis showed 4+ glucose, 1+ ketones, negative leuks, negative white cells. Acetone negative. No urinary symptoms. Patient was started on Zosyn initially. The patient seen in follow- up in the intensive care unit, apparently last night he had a episode of agitation, patient was delirious, he had taken his oxygen off, and the probably was acutely hypoxemic. He was given a dose of Haldol, this morning he is awake and alert, oriented 3. In no acute distress, his pulse ox is 95%, on 4 L per nasal cannula, afebrile, blood and urine cultures are still pending. Patient denies any fever or chills. Hemodynamically stable. He is quite a bit more bronchospastic on today's exam. Follow-up chest x-ray today shows some lingular atelectasis, minimal infiltrate at the right lower lobe. CT of chest, abdomen and pelvis showed grossly clear lungs, no pleural effusion or pneumothorax, no bowel obstruction, normal gas pattern, no greater than 1 cm abdominal pelvic lymph nodes. On 04/12/2018 patient seen in follow-up. She is resting comfortably in bed, in no acute distress, currently on 4-5 L of oxygen per nasal cannula his pulse ox is 92%, afebrile, hemodynamically stable, lung sounds are positive for diffuse wheezes, but overall less bronchospastic was dyspneic. Urine and blood culture showed no growth. An abiotic coverage in the form of Zithromax and Rocephin, patient is on nebulized bronchodilators, yesterday he received a dose of IV Lasix, we will give the patient will dose of Lasix today. continue current dose of IV steroids. Patient has been ambulating in the room, tolerating activity well. No complaint of chest pain, has an occasional cough, no sputum production. On 04/15/2018 patient seen in follow-up on selective care unit, he is resting comfortably in bed, in no acute distress. Currently on 2 L per nasal cannula his pulse ox is around 95-96%, will obtain home oxygen assessment, patient denies any worsening dyspnea, lung sounds are positive for some coarse bibasilar crackles, no significant wheezing on today's exam. Urine and blood cultures show no growth, no significant chest congestion. Room air pulse ox is 92%, no fever or chills, hemodynamically patient is stable, patient has been treated with antibiotics in the form of Zithromax and Rocephin, he is on oral diuretics, and he is maintaining negative fluid balance, patient is appropriate , no confusion or agitation. Patient is calm and cooperative. And is for the patient to go home today, patient is stable for discharge home today from pulmonary perspective. Objective - Vital Signs Vital signs: Vital Signs Temp 96.8 F L 04/15/18 08:30 Pulse 76 04/15/18 15:58 Resp 18 04/15/18 12:15 BP 149/71 04/15/18 12:15 Pulse Ox 92 L 04/15/18 12:15 Intake & Output 04/14/18 04/15/18 04/15/18 18:59 06:59 18:59 Intake Total 2070 350 960 Output Total 1850 1725 775 Balance 220 -1375 185 Weight 112.3 kg Intake: IV 50 350 Sodium Chloride 0.9% 1, 50 350 000 ml @ 10 mls/hr IV . Q24H [facility] Rx#:[id number] Intake, IV Titration 100 Amount cefTRIAXone 1 gm In 100 Sodium Chloride 0.9% 50 ml @ 100 mls/hr IVPB Q24HR [facility] Rx#:[id number] Oral 1920 960 Output: Urine 1850 1725 775 Other: Voiding Method Urinal # Voids 375 2 # Bowel Movements 1 1 - Exam GENERAL EXAM: Alert, active, 77-year-old white male patient on 2 L per nasal cannula comfortable in no apparent distress. HEAD: Normocephalic/atraumatic. EYES: Normal reaction of pupils, equal size. Conjunctiva pink, sclera white. NOSE: Clear with pink turbinates. THROAT: No erythema or exudates. NECK: No masses, no JVD, no thyroid enlargement, no adenopathy. CHEST: No chest wall deformity. Symmetrical expansion. LUNGS: Equal air entry with bibasilar crackles CVS: Regular rate and rhythm, normal S1 and S2, no gallops, no murmurs, no rubs ABDOMEN: Soft, nontender. No hepatosplenomegaly, normal bowel sounds, no guarding or rigidity. EXTREMITIES: No clubbing, no edema, no cyanosis, 2+ pulses and upper and lower extremities. MUSCULOSKELETAL: Muscle strength and tone normal. SPINE: No scoliosis or deformity SKIN: No rashes CENTRAL NERVOUS SYSTEM: Alert and oriented -3. No focal deficits, tone is normal in all 4 extremities. PSYCHIATRIC: Alert and oriented -3. Appropriate affect. Intact judgment and insight. - Labs CBC & Chem 7: 04/14/18 05:48 04/14/18 05:48 Labs: Abnormal Lab Results - Last 24 Hours (Table) 04/14/18 04/15/18 04/15/18 Range/Units 21:01 06:12 11:50 POC Glucose (mg/dL) 155 H 129 H 126 H (75-99) mg/dL Microbiology - Last 24 Hours (Table) 04/08/18 13:50 Blood Culture - Final Blood No Growth after 144 hours Assessment and Plan Plan: Assessment: #1. Acute hypoxemic respiratory failure related to atrial fibrillation/flutter with rapid ventricular response, and tracheobronchitis. Chest x-ray showed no acute pulmonary processm, VQ scan showed low probability for PE #2. Lactic acidosis, possibly related to sepsis, and so far CT chest/abdomen and pelvis was negative, cultures are negative #3. Elevated troponins #4. A. fib with RVR #5. Acute kidney injury #6. Episode of acute agitation, delirium, likely related to hypoxemia, improved #6. Chronic kidney disease stage III #7. History of carotid artery stenosis #8. GERD, psoriasis, diabetes mellitus type 2 Plan: Patient is to improve, no worsening dyspnea, but as bronchospastic on today's exam, no significant chest congestion, he is maintaining negative fluid balance , cultures are negative, no fever or chills. From pulmonary perspective patient is stable for discharge home today, home oxygen assessment revealed patient maintained oxygenation on room air, above 92%. Will need to follow-up should pulmonary clinic with Dr. Velázquez in 7-10 days I performed a history & physical examination of the patient and discussed their management with my nurse practitioner, Crystal Matos. I reviewed the nurse practitioner's note and agree with the documented findings and plan of care. Lung sounds are positive for diffuse wheezes throughout the lung arnold. The findings and the impression was discussed with the patient. I attest to the documentation by the nurse practitioner. Time with Patient: Less than 30
--- NOTE | 2018-04-16 07:55 | DS ---
DISCHARGE SUMMARY DATE OF SERVICE: 04/15/2018 FINAL DIAGNOSES: 1. Chronic obstructive pulmonary disease acute exacerbation with acute reactive bronchospasm with acute purulent tracheobronchitis, acute hypoxic respiratory failure. No evidence of pulmonary embolism. 2. Atrial fibrillation with fast ventricular rate, present on admission. 3. Change in mental status, hypoxia, metabolic encephalopathy, possibly secondary to hypoxia and chronic obstructive pulmonary disease and reactive bronchospasm. 4. Diabetes mellitus type 2. 5. Acute on chronic kidney disease. 6. Elevated lactic acid, possible sepsis. 7. No evidence of ischemic colitis. 8. Hypertension. 9. History of coronary artery disease, stent. 10.History of carotid artery stenosis. 11.History of gastroesophageal reflux disease. 12.History of psoriasis. 13.History of chronic kidney disease stage 3. 14.Diabetes mellitus type 2, uncontrolled. 15.Hypocalcemia. 16.Hyponatremia. 17.Hyperkalemia, present on admission. 18.FULL CODE. DISCHARGE DISPOSITION: The patient will be discharged in stable condition with guarded prognosis. HISTORY OF PRESENT ILLNESS: This 77-year-old gentleman with a past medical history of multiple medical problems was admitted with COPD acute exacerbation as well as acute bronchospasm and multiple other medical issues. Patient treated with antibiotics, bronchodilators, steroids. Patient improved significantly. On exam, vitals are stable. CARDIOVASCULAR: S1, S2 muffled. RESPIRATORY: A few scattered rhonchi. ABDOMEN: Soft. NERVOUS SYSTEM: No focal deficits. Patient is arranged home O2 and patient will be discharged in stable condition after clearance from Dr. Velázquez. Outpatient follow up is recommended. DISCHARGE ADVICE: 1. Diet is cardiac. 2. Activity limited until followup. 3. Follow up with Dr. Bolaños in 2 to 3 days. 4. Follow up with Dr. Espitia as advised. 5. Follow up with Dr. Joseph as advised. Medications are as follows: 1. Norvasc 10 mg p.o. daily. 2. Lasix 60 mg p.o. daily. 3. Neurontin 100 mg p.o. t.i.d. 4. NovoLog 70/30 of 45 units daily and 35 units q.a.m. 5. Imdur 30 mg daily. 6. Eliquis 5 mg p.o. b.i.d. 7. Lipitor 40 mg q.h.s. 8. Zithromax 500 daily for 5 days. 9. Symbicort 160/4.5 one puff b.i.d. 10.Ceftin 500 mg p.o. bid for 3 days. 11.Tambocor 50 mg p.o. b.i.d. 12.DuoNeb q.i.d. and p.r.n. 13.Lopressor 50 mg p.o. b.i.d. 14.Prednisone taper 40 mg daily for 3 days, 30 for 3 days, 20 for 3 days, 10 for 3 days then stop. Once again, the patient will be discharged in stable condition with guarded prognosis. MMODL / IJN: [id number] / MTDCheri
--- NOTE | 2018-04-17 08:59 | CDI ---
Documentation Clarification Form Date: 04/09/2018 1:07:00 PM From: Danay Parada, TANIKA, CCDS Admit Date: 04/08/2018 3:04:00 PM Patient Name: Hector Ha Visit Number: [id number] Discharge Date: 04/15/2018 4:29:00 PM ATTENTION: The Clinical Documentation Specialists (CDI) and [facility] Coding Staff appreciate your assistance in clarifying documentation. Please respond to the clarification below the line at the bottom and electronically sign. The CDI & [facility] Coding staff will review the response and follow-up if needed. Please note: Queries are made part of the Legal Health Record. If you have any questions, please contact the author of this message via ITS. Dr. Danyel Zamarripa: Per the Cardiology consult: "The patient appears to have paroxysmal atrial flutter on and off." Per the Pulmonary consult: "Shortness of breath, likely secondary to atrial fibrillation/flutter with increased with the atrial fibrillation/flutter with a rapid ventricular response." Per the 04/13 Cardiology progress note: "Paroxysmal atrial fibrillation, converted to sinus mechanism." History/Risk Factors: Atrial fibrillation (per pulmonary consult), Hypertension with CKD, PVD, COPD, Hyperlipidemia, Obesity,non smoker, previous left carotid endarterectomy. Clinical Indicators: Presented with SOB from other facility, transferred for VQ scan: low probability for PE. 04/09 Initial EKG: evidence of atrial flutter. Treatment: Albuterol INH, IV Rocephin, IV fl bolus x, IV Azithromycin, IV Solumedrol, NRB. In your professional opinion, can you please clarify the type of Atrial Flutter , if known? Atrial Flutter: Typical Atypical Type I Type II Other, please specify: Unable to determine (Last Revision: May 2017) Typical atrial flutter MTDD
== END 2018-04-15 16:29 | disposition home health service (06) | DRG 871 ==
LOC: EC 11:37 → 3SCARD 15:04 → 2SICU 04-09 00:19 → 3SCARD 04-12 18:42
PROVIDERS: ADMIT Hospitalist; ATTEND Hospitalist
DX: A41.9 Sepsis, unspecified organism (principal); J96.01 Acute respiratory failure with hypoxia; G93.41 Metabolic encephalopathy; J18.9 Pneumonia, unspecified organism; J44.1 Chronic obstructive pulmonary disease with (acute) exacerbation; I48.92 Unspecified atrial flutter; E87.1 Hypo-osmolality and hyponatremia; E87.2 Acidosis; N17.9 Acute kidney failure, unspecified; J44.0 Chronic obstructive pulmonary disease with (acute) lower respiratory infection; E11.51 Type 2 diabetes mellitus with diabetic peripheral angiopathy without gangrene; E11.65 Type 2 diabetes mellitus with hyperglycemia; E66.9 Obesity, unspecified; I48.0 Paroxysmal atrial fibrillation; I65.29 Occlusion and stenosis of unspecified carotid artery; E78.5 Hyperlipidemia, unspecified; E83.51 Hypocalcemia; E87.5 Hyperkalemia; I25.10 Atherosclerotic heart disease of native coronary artery without angina pectoris; L40.9 Psoriasis, unspecified; N18.3 Chronic kidney disease, stage 3 (moderate); K21.9 Gastro-esophageal reflux disease without esophagitis; J20.9 Acute bronchitis, unspecified; I12.9 Hypertensive chronic kidney disease with stage 1 through stage 4 chronic kidney disease, or unspecified chronic kidney disease; E11.22 Type 2 diabetes mellitus with diabetic chronic kidney disease; Z79.899 Other long term (current) drug therapy; Z79.82 Long term (current) use of aspirin; Z79.4 Long term (current) use of insulin; Z98.42 Cataract extraction status, left eye; Z98.41 Cataract extraction status, right eye; Z79.01 Long term (current) use of anticoagulants; Z91.5 Personal history of self-harm; Z95.5 Presence of coronary angioplasty implant and graft
CPT/HCPCS: 36415; 36600; 71045; 71250; 74176; 78582; 80048; 80053; 81001; 82009; 82550; 82553; 82805; 83036; 83605; 83735; 84100; 84484; 85025; 85610; 85730; 87040; 87070; 87086; 87205; 87502; 93306; 94640; 94760; 96361; 96365; 96366; 96367; 96372; 96375; 96376; 99285